=== PATIENT | male | born 1945 | race Caucasian/White ===

== ENCOUNTER 2020-05-18 16:46 | Inpatient (IN) | payer MEDICARE, OTHER ==
[2020-05-18 18:26] LABS: Hematocrit 24.6 % (42-50); Hemoglobin 8.1 gm/dl (12.5-18.0); Mean Cell Volume 118.3 fl (78-100); Mean Corpuscular Hemoglobin 38.9 pg (26-32); Mean Corpuscular Hgb Concent. 32.9 g/dl (32-36); Mean Platelet Volume 10.6 fl (7.5-11.0); Platelet Count 267 K/mm3 (150-450); Red Blood Count 2.08 M/mm3 (4.1-5.6); Red Cell Distribution Width 13.7 % (11.5-14.0); White Blood Count 4.3 K/mm3 (4.0-10.5)
[2020-05-18] MEDS ORDERED: Sodium Chloride 0.9% 1000 ML 1,000 ML IV SCH (18:30)
[2020-05-18 18:36] LABS: ALBUMIN 4.3 g/dL (3.5-5.0); ANION GAP 15.6 MEQ/L (5-15); BILIRUBIN,TOTAL 0.5 mg/dL (0.2-1.3); Calcium 9.1 mg/dL (8.4-10.2); Creatinine 1 1.95 mg/dL (0.66-1.25); EST GLOMERULAR FILTRATION RATE 35.8 ML/MIN; Total Protein 8.4 g/dL (6.3-8.2)
[2020-05-18] MEDS ORDERED: REMDESIVIR 200 MG in Sodium Chloride 0.9% 250 ML 250 ML IV SCH (19:00)
[2020-05-18] MEDS: TYLENOL EXTRA STRENGTH 500 MG PO PRN (20:35)
[2020-05-18] MEDS: Zofran 4 MG/2 ML VIAL IV PRN (21:00)
--- NOTE | 2020-05-18 21:30 | XRAY ---
Indication: Change in mental status. Nausea, vomiting, and chills. Positive Covid 19. Multiple contiguous axial images obtained through the chest without contrast as ordered. Comparison: None Lungs inflated with diffuse bilateral scattered patchy airspace disease and mild bibasilar dependent atelectasis. No effusion. Heart is not enlarged. Aorta is minimally calcified without aneurysmal dilatation. Small mediastinal and left hilar calcified nodes. Small hiatal hernia. Bony thorax intact with mild degenerative changes throughout the spine. CT abdomen/pelvis reported separately. Impression: 1. Diffuse bilateral patchy airspace disease, probable Covid 19 pneumonia based on clinical history. 2. Incidental old granulomatous disease. Comment: Preliminary interpretation was made by [facility]. No critical discrepancy.
--- NOTE | 2020-05-18 21:31 | XRAY ---
Indication: Change in mental status. Nausea, vomiting, and chills. Positive Covid 19. Multiple contiguous axial images obtained through the head without contrast. Comparison: None Age-appropriate global atrophy and mild periventricular degenerative micro-ischemia bilaterally. No acute intracranial hemorrhage, abnormal extra-axial fluid collection, or mass effect. Fourth ventricle is midline without hydrocephalus. Bony calvarium intact. Right maxillary and right frontal sinus demonstrate moderate mucosal thickening with fluid leveling. Lesser mucosal thickening seen of both ethmoid sinuses. Mastoid air cells are clear. Impression: 1. Nonacute senile brain. 2. Incidental paranasal sinus disease. Comment: Preliminary interpretation was made by [facility]. No critical discrepancy.
--- NOTE | 2020-05-18 21:46 | XRAY ---
Indication: Change in mental status. Nausea, vomiting, and chills. Positive Covid 19. Multiple contiguous axial images obtained through the abdomen and pelvis without contrast as ordered. Comparison: May 10, 2020. CT chest reported separately. Noncontrasted stomach and bowel loops remain nonobstructed with stable intact right hemicolectomy, descending/sigmoid diverticulosis, total cystectomy with right lower quadrant urinary diversion ileoconduit and right lower quadrant stoma. Also cholecystectomy, stable hepatic/splenic calcific granulomas, and hepatosplenomegaly. No free fluid/air. Remaining liver, pancreas, spleen, and adrenal glands are unremarkable for noncontrast exam. Stable mild scattered aortoiliac calcifications without AAA. Impression: 1. Stable postsurgical changes including right hemicolectomy and total cystectomy with right lower quadrant urinary diversion ileoconduit/stoma. 2. Again incidental colonic diverticulosis, hepatosplenomegaly, and old granulomatous disease. 3. No new/acute intra-abdominal/pelvic abnormalities on this noncontrast exam. Comment: Preliminary interpretation was made by [facility]. No critical discrepancy.
[2020-05-19] MEDS: Sodium Chloride 0.9% 1000 ML 1,000 ML IV SCH ×3 (02:03→15:09)
[2020-05-19 02:04] LABS: Bacteria MODERATE /HPF (NEGATIVE); Mucus SLIGHT /HPF (NEGATIVE); RBC 0-2 /HPF (0-2); WBC 26-50 /HPF (0-5)
[2020-05-19 02:06] LABS: Appearance CLOUDY (CLEAR); Bilirubin NEGATIVE (NEGATIVE); Glucose NEGATIVE (NEGATIVE); Ketones NEGATIVE (NEGATIVE); Nitrite NEGATIVE (NEGATIVE); Protein,Urine Dip 30 (Negative); RBC TRACE-INTACT Ery/ul (0-5); Specific Gravity 1.015 (1.005-1.025); Urobilinogen 0.2 mg/dL (0-1)
[2020-05-19] MEDS: TYLENOL EXTRA STRENGTH 500 MG PO PRN ×3 (04:51→23:25)
[2020-05-19 05:39] LABS: Hematocrit 24.3 % (42-50); Hemoglobin 7.9 gm/dl (12.5-18.0); Mean Cell Volume 119.7 fl (78-100); Mean Corpuscular Hemoglobin 38.9 pg (26-32); Mean Corpuscular Hgb Concent. 32.5 g/dl (32-36); Mean Platelet Volume 11.3 fl (7.5-11.0); Platelet Count 252 K/mm3 (150-450); Red Blood Count 2.03 M/mm3 (4.1-5.6); Red Cell Distribution Width 13.8 % (11.5-14.0); White Blood Count 3.7 K/mm3 (4.0-10.5)
[2020-05-19 05:52] LABS: INR 1.39 (0.8-3.0); PROTIME 15.8 SECONDS (8.83-12.87)
[2020-05-19 05:57] LABS: ANION GAP 17.2 MEQ/L (5-15); Calcium 8.6 mg/dL (8.4-10.2); Creatinine 1 1.77 mg/dL (0.66-1.25); EST GLOMERULAR FILTRATION RATE 40.1 ML/MIN; Potassium 3.7 mmol/L (3.5-5.1)
[2020-05-19] MEDS: Zofran 4 MG/2 ML VIAL IV PRN (08:11)
[2020-05-19] MEDS ORDERED: ROCEPHIN 1 Gm-D5w 50 ml Bag** 1 G/50 ML IVPB IV SCH (10:00)
[2020-05-19 12:22] LABS: AMYLASE 479 U/L (30-110)
[2020-05-19] MEDS ORDERED: MORPHINE SULFATE 2 MG INJ IV PRN (13:04)
[2020-05-19 13:18] LABS: LIPASE 2406 U/L (23-300)
[2020-05-19] MEDS: ZYLOPRIM 300 MG PO SCH (13:32)
[2020-05-19] MEDS: ASTELIN NASAL INTRANASAL SCH ×2 (13:33→21:21)
[2020-05-19] MEDS: hydroDIURIL 25 MG PO SCH (13:33)
[2020-05-19] MEDS: Lopressor 50 MG PO SCH (13:34)
[2020-05-19] MEDS: Zestril 5 MG PO SCH (13:34)
[2020-05-19] MEDS: NORVASC 5 MG PO SCH (13:34)
[2020-05-19] MEDS: Ativan 1 MG PO SCH (13:35)
[2020-05-19] MEDS: BABY ASPIRIN 81 MG CHEW PO SCH (13:35)
[2020-05-19] MEDS: ENOXAPARIN SODIUM SQ SCH (13:36)
[2020-05-19] MEDS: Protonix 40MG Tablet PO SCH (13:36)
[2020-05-19] MEDS: REMDESIVIR 100 MG in Sodium Chloride 0.9% 100 ML IVPB 100 ML IV SCH (18:48)
[2020-05-20] MEDS: Ativan 1 MG PO SCH ×3 (01:11→22:12)
[2020-05-20] MEDS: Sodium Chloride 0.9% 1000 ML 1,000 ML IV SCH ×2 (04:59→13:50)
[2020-05-20 06:54] LABS: AMYLASE 626 U/L (30-110)
[2020-05-20 06:55] LABS: INR 1.52 (0.8-3.0); PROTIME 17.2 SECONDS (8.83-12.87)
[2020-05-20 07:01] LABS: LIPASE 2990 U/L (23-300)
[2020-05-20 07:15] LABS: ALBUMIN 3.5 g/dL (3.5-5.0); ANION GAP 14.3 MEQ/L (5-15); BILIRUBIN,TOTAL 0.4 mg/dL (0.2-1.3); Calcium 8.5 mg/dL (8.4-10.2); Creatinine 1 1.56 mg/dL (0.66-1.25); EST GLOMERULAR FILTRATION RATE 46.3 ML/MIN; Potassium 3.9 mmol/L (3.5-5.1); Total Protein 6.9 g/dL (6.3-8.2)
[2020-05-20] MEDS: TYLENOL EXTRA STRENGTH 500 MG PO PRN (07:27)
[2020-05-20] MEDS: ASTELIN NASAL INTRANASAL SCH ×2 (09:26→22:12)
[2020-05-20] MEDS: BABY ASPIRIN 81 MG CHEW PO SCH (09:28)
[2020-05-20] MEDS: ZYLOPRIM 300 MG PO SCH (09:32)
[2020-05-20] MEDS: hydroDIURIL 25 MG PO SCH (09:35)
[2020-05-20] MEDS: Lopressor 50 MG PO SCH (09:35)
[2020-05-20] MEDS: ENOXAPARIN SODIUM SQ SCH (09:35)
[2020-05-20] MEDS: NORVASC 5 MG PO SCH (09:35)
[2020-05-20] MEDS: Zestril 5 MG PO SCH (09:35)
[2020-05-20] MEDS: Protonix 40MG Tablet PO SCH (09:35)
[2020-05-20] MEDS: TORAdol 30 mg Injection IV PRN ×2 (12:30→22:12)
[2020-05-20] MEDS: REMDESIVIR 100 MG in Sodium Chloride 0.9% 100 ML IVPB 100 ML IV SCH (18:05)
[2020-05-21 05:48] LABS: Absolute Neutrophil Ct (ANC) 1.87 (1.4-6.9); BASOPHIL % 0.4 % (0.0-0.4); Basophil (Absolute #) 0.01 (0-0.4); Eosinophil % 2.5 % (0.00-5.0); Eosinophil (Absolute #) 0.07 (0-0.5); Hematocrit 23.7 % (42-50); Hemoglobin 7.6 gm/dl (12.5-18.0); Lymphocyte (Absolute #) 0.62 (1.0-4.6); Lymphocytes % 22.3 % (24.0-44.0); Mean Cell Volume 119.1 fl (78-100); Mean Corpuscular Hemoglobin 38.2 pg (26-32); Mean Corpuscular Hgb Concent. 32.1 g/dl (32-36); Monocyte (Absolute #) 0.21 (0.0-1.3); Monocytes % 7.6 % (0.0-12.0); Neutrophil % 67.2 % (36.0-66.0); Platelet Count 285 K/mm3 (150-450); Red Blood Count 1.99 M/mm3 (4.1-5.6); Red Cell Distribution Width 13.9 % (11.5-14.0); White Blood Count 2.8 K/mm3 (4.0-10.5)
[2020-05-21 06:05] LABS: ALBUMIN 3.6 g/dL (3.5-5.0); ANION GAP 14.3 MEQ/L (5-15); BILIRUBIN,TOTAL 0.4 mg/dL (0.2-1.3); Calcium 8.4 mg/dL (8.4-10.2); Creatinine 1 1.4 mg/dL (0.66-1.25); EST GLOMERULAR FILTRATION RATE 52.5 ML/MIN; Potassium 3.6 mmol/L (3.5-5.1); Total Protein 7.4 g/dL (6.3-8.2)
[2020-05-21] MEDS: TORAdol 30 mg Injection IV PRN ×3 (08:29→22:27)
[2020-05-21] MEDS: ASTELIN NASAL INTRANASAL SCH ×2 (09:41→22:28)
[2020-05-21] MEDS: BABY ASPIRIN 81 MG CHEW PO SCH (09:42)
[2020-05-21] MEDS: Ativan 1 MG PO SCH ×2 (09:42→22:28)
[2020-05-21] MEDS: ZYLOPRIM 300 MG PO SCH (09:45)
[2020-05-21] MEDS: hydroDIURIL 25 MG PO SCH (09:53)
[2020-05-21] MEDS: Lopressor 50 MG PO SCH (09:53)
[2020-05-21] MEDS: Zestril 5 MG PO SCH (09:53)
[2020-05-21] MEDS: NORVASC 5 MG PO SCH (09:53)
[2020-05-21] MEDS: Protonix 40MG Tablet PO SCH (09:53)
[2020-05-21] MEDS: ENOXAPARIN SODIUM SQ SCH (09:54)
[2020-05-21] MEDS: Sodium Chloride 0.9% 1000 ML 1,000 ML IV SCH ×2 (12:03→22:33)
--- NOTE | 2020-05-21 13:25 | HP ---
CHIEF COMPLAINT: Headache, nausea, vomiting, weakness, history of a positive COVID test. HISTORY OF PRESENT ILLNESS: The patient came to the office and was seen by Dr. Feldman and he has continued to vomit the last day and felt terrible. He had a positive COVID test I think the day before. Because of his labs Dr. Feldman had ordered a CT of the chest, CT abdomen and pelvis which he had to do without contrast because of elevated creatinine. His main complaint is the abdominal griping pain he said and the nausea, feeling weak. He denies having any high fever or chills. He denies any cough or shortness of breath. The has noticed some mental status changes. She said he is having chills. MEDICATIONS: Allopurinol 300 q.d., amlodipine 5 q.d., aspirin 81 q.d., Astelin nose spray 2 sprays b.i.d. each nostril, hydrochlorothiazide 25 q.d., Lisinopril 5 q.d. and metoprolol 50 q.d. ALLERGIES: PROMETHAZINE. 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 B12 level was done here and it was more than adequate. Hypertension supposedly well controlled. History of gout in the past. Kidney stones. 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 He said that has done very well for him. He has an Meenakshi pouch or a jejunostomy pouch. SOCIAL HISTORY: The patient lives with his . He is retired. Nonsmoker. LAB DATA AND TESTS: Hemoglobin 7.9. MCV markedly elevated 119. PLT count 250,000. Vitamin B12 was well within normal at 578. UA is slightly abnormal. Blood sugar 124, creatinine 1.95. Total protein mildly elevated 8.2. His lipase is 1,261, amylase 391 suggestive of chronic pancreatitis. CT scan with no contrast did not particularly show anything. His D-dimer is slightly elevated at 707. PHYSICAL EXAMINATION: HEENT: Kind of a dull headache in frontal. NECK: No stiffness. CHEST: No cough. No smoking. CVS: No exertional chest pain or palpitation. No coronary artery disease. ABDOMEN: Nausea, vomiting, lower abdominal pain. EXTREMITIES: No specific complaints except for weakness. IMPRESSION: The patient has: 1) COVID with perhaps GI symptoms, weakness. 2) Possible pancreatitis. Elevated amylase and lipase. 3) Myeloproliferative disorder and no specific treatment. 4) Macrocytic anemia secondary to above. PLAN: The patient will be treated for COVID with medicines including Decadron and Remdesivir, nausea medicine. He will not be anticoagulated due to his D-dimer being slightly high at 700 and myeloproliferative disorder, will consider that later. I do note chest x-ray does show ground-glass areas in the peripheral of the lung typical for viral pneumonia, connective tissue disease.
[2020-05-21] MEDS: REMDESIVIR 100 MG in Sodium Chloride 0.9% 100 ML IVPB 100 ML IV SCH (18:06)
[2020-05-21] MEDS: TYLENOL EXTRA STRENGTH 500 MG PO PRN (20:11)
[2020-05-22 06:09] LABS: Hematocrit 23.3 % (42-50); Hemoglobin 7.5 gm/dl (12.5-18.0); Mean Cell Volume 118.9 fl (78-100); Mean Corpuscular Hemoglobin 38.3 pg (26-32); Mean Corpuscular Hgb Concent. 32.2 g/dl (32-36); Mean Platelet Volume 10.9 fl (7.5-11.0); Platelet Count 326 K/mm3 (150-450); Red Blood Count 1.96 M/mm3 (4.1-5.6); Red Cell Distribution Width 13.8 % (11.5-14.0); White Blood Count 4.9 K/mm3 (4.0-10.5)
[2020-05-22 06:15] LABS: ANION GAP 12.3 MEQ/L (5-15); Calcium 8.6 mg/dL (8.4-10.2); Creatinine 1 1.41 mg/dL (0.66-1.25); EST GLOMERULAR FILTRATION RATE 52.1 ML/MIN; Potassium 4.1 mmol/L (3.5-5.1)
[2020-05-22] MEDS: TYLENOL EXTRA STRENGTH 500 MG PO PRN ×2 (06:32→21:17)
[2020-05-22] MEDS: BABY ASPIRIN 81 MG CHEW PO SCH (09:55)
[2020-05-22] MEDS: ASTELIN NASAL INTRANASAL SCH ×2 (09:55→21:19)
[2020-05-22] MEDS: Ativan 1 MG PO SCH ×2 (09:55→21:17)
[2020-05-22] MEDS: hydroDIURIL 25 MG PO SCH (09:56)
[2020-05-22] MEDS: ENOXAPARIN SODIUM SQ SCH (09:56)
[2020-05-22] MEDS: Lopressor 50 MG PO SCH (09:56)
[2020-05-22] MEDS: NORVASC 5 MG PO SCH (09:56)
[2020-05-22] MEDS: Protonix 40MG Tablet PO SCH (09:58)
[2020-05-22] MEDS: ZYLOPRIM 300 MG PO SCH (09:58)
[2020-05-22] MEDS: Zestril 5 MG PO SCH (09:58)
[2020-05-22] MEDS: Sodium Chloride 0.9% 1000 ML 1,000 ML IV SCH ×2 (10:07→21:18)
[2020-05-22] MEDS: Zofran 4 MG/2 ML VIAL IV PRN (15:04)
[2020-05-22] MEDS: REMDESIVIR 100 MG in Sodium Chloride 0.9% 100 ML IVPB 100 ML IV SCH (18:01)
[2020-05-22] MEDS: TORAdol 30 mg Injection IV PRN (19:21)
[2020-05-22] MEDS ORDERED: NEURONTIN 300 MG ONE (20:37)
[2020-05-22] MEDS: NEURONTIN 300 MG PO SCH (21:18)
[2020-05-23] MEDS: NEURONTIN 300 MG PO SCH ×4 (05:40→22:02)
[2020-05-23 06:23] LABS: AMYLASE 441 U/L (30-110); LIPASE 1700 U/L (23-300)
[2020-05-23] MEDS: ASTELIN NASAL INTRANASAL SCH ×2 (09:13→22:02)
[2020-05-23] MEDS: Lopressor 50 MG PO SCH (09:14)
[2020-05-23] MEDS: ENOXAPARIN SODIUM SQ SCH (09:14)
[2020-05-23] MEDS: BABY ASPIRIN 81 MG CHEW PO SCH (09:14)
[2020-05-23] MEDS: hydroDIURIL 25 MG PO SCH (09:14)
[2020-05-23] MEDS: ZYLOPRIM 300 MG PO SCH (09:15)
[2020-05-23] MEDS: Protonix 40MG Tablet PO SCH (09:15)
[2020-05-23] MEDS: NORVASC 5 MG PO SCH (09:15)
[2020-05-23] MEDS: Ativan 1 MG PO SCH ×2 (09:16→22:03)
[2020-05-23] MEDS: TORAdol 30 mg Injection IV PRN ×2 (09:17→17:08)
[2020-05-23] MEDS: Zestril 5 MG PO SCH (09:33)
[2020-05-23] MEDS: Sodium Chloride 0.9% 1000 ML 1,000 ML IV SCH ×2 (09:33→22:01)
[2020-05-23] MEDS: TYLENOL EXTRA STRENGTH 500 MG PO PRN ×2 (18:02→23:32)
[2020-05-24] MEDS: Zofran 4 MG/2 ML VIAL IV PRN ×2 (00:11→08:26)
[2020-05-24 03:56] LABS: ALBUMIN 3.1 g/dL (3.5-5.0); ANION GAP 15.1 MEQ/L (5-15); BILIRUBIN,TOTAL 0.7 mg/dL (0.2-1.3); Calcium 8.4 mg/dL (8.4-10.2); Creatinine 1 1.35 mg/dL (0.66-1.25); EST GLOMERULAR FILTRATION RATE 54.8 ML/MIN; Potassium 3.7 mmol/L (3.5-5.1); Total Protein 6.4 g/dL (6.3-8.2)
[2020-05-24 04:48] LABS: Absolute Neutrophil Ct (ANC) 8.27 (1.4-6.9); BASOPHIL % 0.2 % (0.0-0.4); Basophil (Absolute #) 0.02 (0-0.4); Eosinophil % 0.7 % (0.00-5.0); Eosinophil (Absolute #) 0.06 (0-0.5); Hematocrit 21.6 % (42-50); Lymphocyte (Absolute #) 0.36 (1.0-4.6); Lymphocytes % 3.9 % (24.0-44.0); Mean Cell Volume 120.7 fl (78-100); Mean Corpuscular Hemoglobin 39.1 pg (26-32); Mean Corpuscular Hgb Concent. 32.4 g/dl (32-36); Mean Platelet Volume 11.4 fl (7.5-11.0); Monocyte (Absolute #) 0.51 (0.0-1.3); Monocytes % 5.5 % (0.0-12.0); Neutrophil % 89.7 % (36.0-66.0); Platelet Count 381 K/mm3 (150-450); Red Cell Distribution Width 14.1 % (11.5-14.0); White Blood Count 9.2 K/mm3 (4.0-10.5)
[2020-05-24 05:07] LABS: Red Blood Count 1.79 M/mm3 (4.1-5.6)
[2020-05-24] MEDS: Sodium Chloride 0.9% 1000 ML 1,000 ML IV SCH ×2 (06:51→16:44)
[2020-05-24 07:09] LABS: Slide Review 1 YES
[2020-05-24] MEDS: TYLENOL EXTRA STRENGTH 500 MG PO PRN ×2 (08:26→21:43)
[2020-05-24] MEDS: ASTELIN NASAL INTRANASAL SCH ×2 (09:27→21:21)
[2020-05-24] MEDS: BABY ASPIRIN 81 MG CHEW PO SCH (09:29)
[2020-05-24] MEDS: hydroDIURIL 25 MG PO SCH (09:29)
[2020-05-24] MEDS: NEURONTIN 300 MG PO SCH ×3 (09:30→21:22)
[2020-05-24] MEDS: Zestril 5 MG PO SCH (09:30)
[2020-05-24] MEDS: Protonix 40MG Tablet PO SCH (09:30)
[2020-05-24] MEDS: NORVASC 5 MG PO SCH (09:30)
[2020-05-24] MEDS: ZYLOPRIM 300 MG PO SCH (09:30)
[2020-05-24] MEDS: TORAdol 30 mg Injection IV PRN ×2 (09:30→21:22)
[2020-05-24] MEDS: Lopressor 50 MG PO SCH (09:31)
[2020-05-24] MEDS: Ativan 1 MG PO SCH ×2 (09:33→21:22)
[2020-05-25 05:28] LABS: Hematocrit 20.6 % (42-50); Mean Cell Volume 119.8 fl (78-100); Mean Corpuscular Hemoglobin 38.4 pg (26-32); Mean Platelet Volume 11.1 fl (7.5-11.0); Platelet Count 358 K/mm3 (150-450); Red Cell Distribution Width 13.8 % (11.5-14.0); White Blood Count 8.4 K/mm3 (4.0-10.5)
[2020-05-25 05:34] LABS: Red Blood Count 1.72 M/mm3 (4.1-5.6)
[2020-05-25 05:35] LABS: Hemoglobin 6.6 gm/dl (12.5-18.0)
[2020-05-25 05:39] LABS: AMYLASE 145 U/L (30-110); LIPASE 372 U/L (23-300)
[2020-05-25] MEDS: Sodium Chloride 0.9% 1000 ML 1,000 ML IV SCH ×3 (06:08→23:45)
[2020-05-25 07:51] LABS: ABO TYPING O; Antibody Screen NEGATIVE (NEGATIVE); RH TYPING POSITIVE
[2020-05-25 07:54] LABS: CROSS MATCH (PRBC) COMPATIBLE (COMPATIBLE)
[2020-05-25] MEDS: ASTELIN NASAL INTRANASAL SCH ×3 (10:27→21:34)
[2020-05-25] MEDS: Ativan 1 MG PO SCH ×2 (11:03→21:23)
[2020-05-25] MEDS: hydroDIURIL 25 MG PO SCH (11:03)
[2020-05-25] MEDS: ECOTRIN 81 MG PO SCH (11:04)
[2020-05-25] MEDS: Lopressor 50 MG PO SCH (11:04)
[2020-05-25] MEDS: ZYLOPRIM 300 MG PO SCH (11:04)
[2020-05-25] MEDS: Zestril 5 MG PO SCH (11:04)
[2020-05-25] MEDS: Protonix 40MG Tablet PO SCH (11:04)
[2020-05-25] MEDS: NORVASC 5 MG PO SCH (11:04)
[2020-05-25] MEDS: NEURONTIN 300 MG PO SCH ×3 (11:04→21:23)
[2020-05-25] MEDS: Lomotil PO SCH ×3 (11:05→21:23)
--- NOTE | 2020-05-25 11:27 | PROG NOTE ---
DATE: 05/25/2020 ADMISSION DIAGNOSES: 1) COVID pneumonia. 2) Pancreatitis moderate to severe. 3) No bladder. 4) Diarrhea. 5) Leg pain. HISTORY: The patient came in with all the above problems. He had his bladder removed due to severe interstitial cystitis years ago. He said it worked very well and his life is bearable. He started developing leg cramps, spasms, nerve pain that has responded nicely to the Neurontin 300 t.i.d. He was hypoxic and that has slowly improved with the oxygen, Decadron and Remdesivir. His problem was mostly the pancreatitis which he has had several times before. He had ERCP that showed no blockage and his gallbladder is out. Today finally his pancreatic enzymes approached normal. He was able to eat some real food last night so optimistic about that. He has minimal pain right now. Chest is clear. Heart sounds regular. Abdomen minimal pain over the epigastric area. He has ostomy pouch on the right which is actually the bladder is normal. IMPRESSION: 1) COVID pneumonia. 2) Pancreatitis. 3) Myeloproliferative disorder with chronic macrocytic anemia which is stable however it stopped under 6. I think we are going to give him 2 units of blood. The patient is improving on all counts may get well enough to return home in 24 to 72 hours hopefully. Diarrhea is still really bad. He normally has some diarrhea this is diffuse and will add Lomotil for that.
[2020-05-25 16:29] LABS: Hematocrit 26.4 % (42-50); Mean Cell Volume 108.2 fl (78-100); Mean Corpuscular Hemoglobin 35.2 pg (26-32); Mean Corpuscular Hgb Concent. 32.6 g/dl (32-36); Mean Platelet Volume 11.2 fl (7.5-11.0); Platelet Count 356 K/mm3 (150-450); Red Blood Count 2.44 M/mm3 (4.1-5.6); Red Cell Distribution Width 20.8 % (11.5-14.0); White Blood Count 6.8 K/mm3 (4.0-10.5)
[2020-05-25 16:34] LABS: Hemoglobin 8.6 gm/dl (12.5-18.0)
[2020-05-25] MEDS: TYLENOL EXTRA STRENGTH 500 MG PO PRN (23:46)
[2020-05-26 07:12] LABS: Hematocrit 25.8 % (42-50); Hemoglobin 8.2 gm/dl (12.5-18.0); Mean Cell Volume 109.3 fl (78-100); Mean Corpuscular Hemoglobin 34.7 pg (26-32); Mean Corpuscular Hgb Concent. 31.8 g/dl (32-36); Mean Platelet Volume 11.1 fl (7.5-11.0); Platelet Count 331 K/mm3 (150-450); Red Blood Count 2.36 M/mm3 (4.1-5.6); Red Cell Distribution Width 21.4 % (11.5-14.0)
[2020-05-26 07:35] LABS: AMYLASE 171 U/L (30-110); ANION GAP 10.9 MEQ/L (5-15); LIPASE 488 U/L (23-300)
[2020-05-26 07:52] LABS: Potassium 2.8 mmol/L (3.5-5.1)
[2020-05-26] MEDS: POTASSIUM CHLORIDE 20 mEq IN WATER 100ML 20 MEQ/100 ML BAG IV SCH ×2 (09:08→10:40)
[2020-05-26 09:40] LABS: Slide Review YES
[2020-05-26] MEDS: ASTELIN NASAL INTRANASAL SCH ×2 (09:46→21:05)
[2020-05-26] MEDS: Protonix 40MG Tablet PO SCH (09:48)
[2020-05-26] MEDS: NORVASC 5 MG PO SCH (09:48)
[2020-05-26] MEDS: ECOTRIN 81 MG PO SCH (09:48)
[2020-05-26] MEDS: NEURONTIN 300 MG PO SCH ×3 (09:48→21:02)
[2020-05-26] MEDS: Lopressor 50 MG PO SCH (09:49)
[2020-05-26] MEDS: Zestril 5 MG PO SCH (09:49)
[2020-05-26] MEDS: ZYLOPRIM 300 MG PO SCH (09:49)
[2020-05-26] MEDS: hydroDIURIL 25 MG PO SCH (09:49)
[2020-05-26] MEDS: Lomotil PO SCH (09:50)
[2020-05-26] MEDS: Ativan 1 MG PO SCH ×2 (09:53→21:02)
--- NOTE | 2020-05-26 10:55 | PCM.NOTE ---
Date and Time: 05/26/20 1051 Subjective Assessment: Patient is feeling ok. still very weak and short of breath - Review of Systems Constitutional: Lethargy, Weakness, No Fever, No Chills Eyes: No Symptoms Ears, Nose, & Throat: No Symptoms Respiratory: Orthopnea, Short Of Breath, No Cough Cardiac: No Chest Pain, No Edema, No Syncope Abdominal/Gastrointestinal: Abdominal Pain, Nausea, No Vomiting, No Diarrhea Genitourinary Symptoms: No Dysuria Musculoskeletal: No Back Pain, No Neck Pain Skin: No Rash Neurological: No Dizziness, No Focal Weakness, No Sensory Changes Psychological: No Symptoms Endocrine: No Symptoms Hematologic/Lymphatic: No Symptoms Immunological/Allergic: No Symptoms Objective Exam General Appearance: moderate distress, alert Neurologic Exam: alert, oriented x 3, cooperative, No motor deficits Skin Exam: normal color, warm, dry Eye Exam: PERRL, EOMI, eyes nml inspection Ears, Nose, Throat Exam: normal ENT inspection, pharynx normal, moist mucous membranes Neck Exam: normal inspection, non-tender, supple, full range of motion Respiratory Exam: crackles/rales, rhonchi, wheezing, No respiratory distress Cardiovascular Exam: regular rate/rhythm, normal heart sounds Gastrointestinal/Abdomen Exam: soft, No tenderness, No mass Extremity Exam: normal inspection, normal range of motion Back Exam: normal inspection, normal range of motion, No CVA tenderness, No vertebral tenderness Male Genitalia Exam: deferred Rectal Exam: deferred OBJECTIVE DATA Vital Signs: Vital Signs - 24 hr Temp Pulse Resp BP Pulse Ox 05/26/20 10:00 24 05/26/20 09:44 88 16 94 L 05/26/20 08:46 97 05/26/20 08:00 18 05/26/20 07:43 98.2 F 93 H 18 123/56 97 05/26/20 05:39 81 19 95 05/26/20 04:05 98.2 F 93 H 24 129/61 96 05/26/20 02:08 93 H 22 95 05/25/20 23:50 100.6 F 91 H 28 H 138/63 92 L 05/25/20 21:48 90 20 94 L 05/25/20 19:41 97.9 F 93 H 24 133/62 93 L 05/25/20 19:15 93 L 05/25/20 18:00 28 H 05/25/20 17:50 92 H 28 H 91 L 05/25/20 15:59 24 05/25/20 15:58 97.4 F 88 24 148/70 98 05/25/20 14:00 24 05/25/20 13:53 84 14 94 L 05/25/20 12:00 98.2 F 83 24 137/66 97 05/25/20 11:30 99 Oxygen-Last 24 hours Oxygen Flowrate (L/min)-RT 1 Pain Assessment - Last Documented Pain Intensity 0 Pain Scale Used [facility] Intake and Output: Intake & Output 05/23/20 05/24/20 05/25/20 05/26/20 11:59 11:59 11:59 11:59 Intake Total 2208 3023 2787 3482 Output Total 2400 3450 2100 3100 Balance -192 -427 687 382 Weight 84.5 kg 85.5 kg 87.6 kg 87 kg Lab Results: Lab Results-Last 24 Hours 05/25/20 05/26/20 05/26/20 Range/Units 16:13 06:00 06:30 WBC 6.8 5.0 (4.0-10.5) K/mm3 RBC 2.44 L 2.36 L (4.1-5.6) M/mm3 Hgb 8.6 L D 8.2 L (12.5-18.0) gm/dl Hct 26.4 L 25.8 L (42-50) % MCV 108.2 H D 109.3 H (78-100) fl MCH 35.2 H 34.7 H (26-32) pg MCHC 32.6 31.8 L (32-36) g/dl RDW 20.8 H 21.4 H (11.5-14.0) % Plt Count 356 331 (150-450) K/mm3 MPV 11.2 H 11.1 H (7.5-11.0) fl Sodium (137-145) mmol/L Potassium (3.5-5.1) mmol/L Chloride (98-107) mmol/L Carbon Dioxide (22-30) mmol/L Anion Gap (5-15) MEQ/L Amylase 171 H (30-110) U/L Lipase 488 H (23-300) U/L Slides for Path Review YES 05/26/20 Range/Units 06:30 WBC (4.0-10.5) K/mm3 RBC (4.1-5.6) M/mm3 Hgb (12.5-18.0) gm/dl Hct (42-50) % MCV (78-100) fl MCH (26-32) pg MCHC (32-36) g/dl RDW (11.5-14.0) % Plt Count (150-450) K/mm3 MPV (7.5-11.0) fl Sodium 138 (137-145) mmol/L Potassium 2.8 L* (3.5-5.1) mmol/L Chloride 104 (98-107) mmol/L Carbon Dioxide 26 (22-30) mmol/L Anion Gap 10.9 (5-15) MEQ/L Amylase (30-110) U/L Lipase (23-300) U/L Slides for Path Review Multi-Disciplinary Progress Notes: Multi-Disciplinary Progress Notes 05/25/20 13:59 Case Management Note by Windy Ho Addendum entered by Windy Ho 05/25/20 14:37: S/W DAUGHTER- UNABLE TO GET A HOLD OF PATIENT PER ROOM PHONE Original Note: S/W DAUGHTER WHO IS CURRENTLY CARING FOR PATIENT'S AT HOME. SHE WOULD LIKE PATIENT TO RETURN HOME AT TIME OF DC AND SHE WILL STAY WITH HIM TO ASSIST HIM NEEDED. SHE WOULD ALSO LIKE [facility]. SENT REFERRAL TO [email or web address]. SAAD AT [facility] NOTIFIED. THEY ARE ACCEPTING REFERRAL NURSING TO CALL [facility] AT TIME OF DC AT [phone], THEY WILL NEED FAXED THE DC INSTRUCTIONS, DC MED LIST AND DC SUMMARY (IF AVAILABLE) TO [phone] Initialized on 05/25/20 13:59 - END OF NOTE Assessment/Plan (1) Pneumonia due to 2019 novel coronavirus Current Visit: Yes Status: Acute Onset Date: ~05/23/20 Assessment & Plan: Chief Complaint Diagnosis MSC, Nausea/Vomiting,Chills Allergies Allergy/AdvReac Type Severity Reaction Status Date / Time promethazine [From Phenergan] Allergy Intermediate Difficulty Verified 05/19/20 00:43 Breathing Vital Signs (Last 24 hours) Temp Pulse Resp BP Pulse Ox 05/26/20 10:00 24 05/26/20 09:44 88 16 94 L 05/26/20 08:46 97 05/26/20 08:00 18 05/26/20 07:43 98.2 F 93 H 18 123/56 97 05/26/20 05:39 81 19 95 05/26/20 04:05 98.2 F 93 H 24 129/61 96 05/26/20 02:08 93 H 22 95 05/25/20 23:50 100.6 F 91 H 28 H 138/63 92 L 05/25/20 21:48 90 20 94 L 05/25/20 19:41 97.9 F 93 H 24 133/62 93 L 05/25/20 19:15 93 L 05/25/20 18:00 28 H 05/25/20 17:50 92 H 28 H 91 L 05/25/20 15:59 24 05/25/20 15:58 97.4 F 88 24 148/70 98 05/25/20 14:00 24 05/25/20 13:53 84 14 94 L 05/25/20 12:00 98.2 F 83 24 137/66 97 05/25/20 11:30 99 Home Medications Medication Instructions Recorded Confirmed Last Taken Type Allopurinol 300 mg [Zyloprim 300 mg PO QAM 05/19/20 05/19/20 05/18/20 08:00 History 300 mg] Amlodipine Besylate 5 mg 5 mg PO QAM 05/19/20 05/19/20 05/18/20 08:00 History [Norvasc 5 mg] Aspirin 81 gm Chew [Baby 81 mg PO QAM 05/19/20 05/19/20 05/18/20 08:00 History Aspirin 81 mg Chew] Azelastine Nasal [Astelin 2 sprays IN BID 05/19/20 05/19/20 05/18/20 08:00 History Nasal] Lisinopril 5 mg [Zestril 5 5 mg PO QAM 05/19/20 05/19/20 05/18/20 08:00 History MG] Metoprolol Tartrate 50 mg 50 mg PO QAM 05/19/20 05/19/20 05/18/20 08:00 History [Lopressor 50 MG] hydroCHLOROthiazide 25 mg PO QAM 05/19/20 05/19/20 05/18/20 08:00 History [Hydrochlorothiazide] Current Medications Generic Name Dose Route Start Last Admin Trade Name Freq PRN Reason Stop Dose Admin Acetaminophen 1,000 mg 05/19/20 14:18 05/25/20 23:46 Tylenol Extra Strength 500 Mg PO 06/18/20 14:17 1,000 mg Q6H PRN PRN Administration HEADACHE Allopurinol 300 mg 05/19/20 13:15 05/26/20 09:49 Zyloprim 300 Mg PO 06/18/20 13:14 300 mg QAM RONNI Administration Amlodipine Besylate 5 mg 05/19/20 14:00 05/26/20 09:48 Norvasc 5 Mg PO 06/18/20 13:59 5 mg QAM RONNI Administration Aspirin 81 mg 05/25/20 11:00 05/26/20 09:48 Ecotrin 81 Mg PO 06/24/20 10:59 81 mg QAM RONNI Administration Azelastine HCl 0 ml 05/19/20 14:00 05/26/20 09:46 Astelin Nasal INTRANASAL 06/18/20 13:59 30 ml BID RONNI Administration Diphenoxylate HCl/Atropine 1 tablet 05/25/20 11:00 05/26/20 09:50 Lomotil PO 06/24/20 10:59 Not Given QID RONNI Gabapentin 300 mg 05/23/20 10:00 05/26/20 09:48 Neurontin 300 Mg PO 06/22/20 09:59 300 mg TID RONNI Administration Hydrochlorothiazide 25 mg 05/19/20 13:15 05/26/20 09:49 Hydrodiuril 25 Mg PO 06/18/20 13:14 25 mg QAM RONNI Administration Sodium Chloride 1,000 mls @ 90 mls/hr 05/18/20 23:30 05/25/20 23:45 Sodium Chloride 0.9% 1000 Ml IV 06/17/20 23:29 90 mls/hr .Q11H7M RONNI Administration Potassium Chloride 20 meq in 100 mls @ 50 mls/hr 05/26/20 08:00 05/26/20 10:40 Potassium Chloride 20 Meq In Water 100ml IV 05/26/20 11:59 50 mls/hr Q2H RONNI Administration Lisinopril 5 mg 05/19/20 13:15 05/26/20 09:49 Zestril 5 Mg PO 06/18/20 13:14 5 mg QAM RONNI Administration Lorazepam 1 mg 05/19/20 13:15 05/26/20 09:53 Ativan 1 Mg PO 06/18/20 13:14 1 mg BID RONNI Administration Metoprolol Tartrate 50 mg 05/19/20 13:15 05/26/20 09:49 Lopressor 50 Mg PO 06/18/20 13:14 50 mg QAM RONNI Administration Ondansetron HCl 4 mg 05/18/20 18:31 05/24/20 08:26 Zofran 4 Mg/2 Ml Vial IV 06/17/20 18:30 4 mg Q4H PRN PRN Administration NV Pantoprazole Sodium 40 mg 05/19/20 10:00 05/26/20 09:48 Protonix 40mg Tablet PO 06/18/20 09:59 40 mg DAILY RONNI Administration Discontinued Medications Generic Name Dose Route Start Last Admin Trade Name Freq PRN Reason Stop Dose Admin Acetaminophen 500 mg 05/18/20 18:32 05/19/20 13:34 Tylenol Extra Strength 500 Mg PO 06/17/20 18:31 500 mg Q6H PRN PRN Administration PAIN AND/OR FEVER Aspirin 81 mg 05/19/20 13:15 05/24/20 09:29 Baby Aspirin 81 Mg Chew PO 06/18/20 13:14 81 mg QAM RONNI Administration Enoxaparin Sodium 40 mg 05/19/20 13:15 05/23/20 09:14 Enoxaparin Sodium SQ 06/18/20 13:14 40 mg DAILY RONNI Administration Gabapentin 300 mg 05/22/20 20:15 05/23/20 05:40 Neurontin 300 Mg PO 06/21/20 20:14 Not Given Q8H RONNI Gabapentin Confirm 05/22/20 20:37 Neurontin 300 Mg Administered 05/22/20 20:38 Dose 300 mg .ROUTE .STK-MED ONE Remdesivir 200 mg/ Sodium 250 mls @ 125 mls/hr 05/18/20 19:00 05/18/20 19:28 Chloride IV 05/18/20 20:59 125 mls/hr 1900 RONNI Administration Remdesivir 100 mg/ Sodium 100 mls @ 100 mls/hr 05/19/20 19:00 05/22/20 18:01 Chloride IV 05/22/20 19:59 100 mls/hr 1900 RONNI Administration Sodium Chloride 1,000 mls @ 125 mls/hr 05/18/20 18:30 05/18/20 19:28 Sodium Chloride 0.9% 1000 Ml IV 05/19/20 02:29 125 mls/hr .Q8H RONNI Administration Ceftriaxone Sodium/Dextrose 1 g in 50 mls @ 100 mls/hr 05/19/20 10:00 Rocephin 1 Gm-D5w 50 Ml Bag IV 06/18/20 09:59 Q24H10 RONNI Ketorolac Tromethamine 30 mg 05/20/20 10:41 05/24/20 21:22 Toradol 30 Mg Injection IV 05/25/20 10:40 30 mg Q6H PRN PRN Administration PAIN Morphine Sulfate 2 mg 05/19/20 13:04 Morphine Sulfate 2 Mg Inj IV 05/24/20 13:03 Q3H PRN PRN LEG PAIN Intake & Output (Last 24 hours) 05/23/20 05/24/20 05/25/20 05/26/20 11:59 11:59 11:59 11:59 Intake Total 2208 3023 2787 3482 Output Total 2400 3450 2100 3100 Balance -192 -427 687 382 Weight 84.5 kg 85.5 kg 87.6 kg 87 kg Microbiology Results (Last 24 hours) 05/24/20 01:11 Blood Blood Culture Gram Stain - Pending 05/24/20 01:11 Blood Blood Culture - Preliminary NO GROWTH TO DATE Laboratory Results (Last 24 hours) 05/26/20 05/26/20 05/26/20 06:30 06:30 06:00 WBC 5.0 RBC 2.36 L Hgb 8.2 L Hct 25.8 L MCV 109.3 H MCH 34.7 H MCHC 31.8 L RDW 21.4 H Plt Count 331 MPV 11.1 H Sodium 138 Potassium 2.8 L* Chloride 104 Carbon Dioxide 26 Anion Gap 10.9 Amylase 171 H Lipase 488 H Slides for Path Review YES 05/25/20 16:13 WBC 6.8 RBC 2.44 L Hgb 8.6 L D Hct 26.4 L MCV 108.2 H D MCH 35.2 H MCHC 32.6 RDW 20.8 H Plt Count 356 MPV 11.2 H Sodium Potassium Chloride Carbon Dioxide Anion Gap Amylase Lipase Slides for Path Review Orders (Last 24 hours) Category Date Time Status Order K Level 2 hours post-inf 2 HRS POST K-INFUSED Care 05/26/20 07:59 Active AMYLASE AM.LAB Lab 05/26/20 06:30 Completed CBC AM.LAB Lab 05/26/20 06:00 Completed CBC Routine Lab 05/25/20 16:13 Completed ELECTROLYTE PANEL AM.LAB Lab 05/26/20 06:30 Completed LIPASE AM.LAB Lab 05/26/20 06:30 Completed Aspirin EC 81 mg [Ecotrin 81 mg] Med 05/25/20 11:00 Active 81 mg PO QAM Diphenoxylate HCl/Atropine [Lomotil] Med 05/25/20 11:00 Active 1 tablet PO QID Potassium Chloride 20Meq/100Ml [POTASSIUM CHLORIDE 20 Med 05/26/20 08:00 Active mEq IN WATER 100ML] 20 meq in 100 ml IV Q2H Patient Care Notes (Last 24 hours) 05/26/20 04:00 (created 05/26/20 05:14) Nursing Note by Rolando Domingo Pt's O2 sat briefly dropped to 69% while pt sleeping. Pt had NC on his forehead, replaced NC, O2 sat quickly back to 94%. O2 sat continues to fl uctuate between 84-94% while sleeping on 3L NC. Initialized on 05/26/20 05:14 - END OF NOTE 05/26/20 02:14 Nursing Note by Rolando Domingo Pt O2 sat briefly drops to low to mid 80s, then back up to low to mid 90s while sleeping. Increased O2 to 2L. Pt still drops to mid 80s. Increased again to 3 L. Pt O2 sat continues to fluctuate from 84% to 96% while sleeping. Initialized on 05/26/20 02:14 - END OF NOTE 05/26/20 00:08 Nursing Note by Rolando Domingo Assisted pt to straight cath, pt very weak at this time and unable to sit on ed ge of bed without assistance. Assisted pt back into bed & repositioned for comfort. Initialized on 05/26/20 00:08 - END OF NOTE 05/25/20 16:20 Nursing Note by Vanessa Lockhart Patient tolerated 2nd unit of PRBCs well, no issues. CBC drawn by lab Initialized on 05/25/20 16:20 - END OF NOTE 05/25/20 13:59 Case Management Note by Windy Ho Addendum entered by Windy Ho 05/25/20 14:37: S/W DAUGHTER- UNABLE TO GET A HOLD OF PATIENT PER ROOM PHONE Original Note: S/W DAUGHTER WHO IS CURRENTLY CARING FOR PATIENT'S AT HOME. SHE WOULD LIKE PATIENT TO RETURN HOME AT TIME OF DC AND SHE WILL STAY WITH HIM TO ASSIST HIM NEEDED. SHE WOULD ALSO LIKE [facility]. SENT REFERRAL TO [facility]. SAAD AT [facility] NOTIFIED. THEY ARE ACCEPTING REFERRAL NURSING TO CALL [facility] AT TIME OF DC AT [phone], THEY WILL NEED FAXED THE DC INSTRUCTIONS, DC MED LIST AND DC SUMMARY (IF AVAILABLE) TO [phone] Initialized on 05/25/20 13:59 - END OF NOTE 05/25/20 13:51 Nursing Note by Vanessa Lockhart Patient tolerated 1st unit PRBCs well, no issues. 2nd unit currently infusing, no issues. Initialized on 05/25/20 13:51 - END OF NOTE 05/25/20 11:13 Nursing Note by Vanessa Lockhart Hgb 6.6. Dr. Stark ordered 2 units PRBCs for patient. Discussed with patient. Patient stated he wanted to check with his "blood doctor" Dr. De La Torre before received. This nurse spoke with Dr. De La Torre's nurse, Marisol. Per nurse patient would receive transfusion at those levels if he was being seen by them, and ok for transfusion. Discussed this with patient, agreeable to receive and consent obtained. VS obtained and patient tolerating 1st unit of blood well. Will continue to monitor. Initialized on 05/25/20 11:13 - END OF NOTE Code(s): U07.1 - COVID-19; J12.89 - OTHER VIRAL PNEUMONIA (2) Pancreatitis, acute Current Visit: Yes Status: Acute Qualifiers: Pancreatitis type: unspecified pancreatitis type Acute pancreatitis complication: unspecified Qualified Code(s): K85.90 - Acute pancreatitis without necrosis or infection, unspecified Code(s): K85.90 - ACUTE PANCREATITIS WITHOUT NECROSIS OR INFECTION, UNSP (3) Myeloproliferative disease Current Visit: Yes Status: Chronic Assessment & Plan: received 2 units of blod transfusion Code(s): D47.1 - CHRONIC MYELOPROLIFERATIVE DISEASE
[2020-05-26] MEDS: Sodium Chloride 0.9% 1000 ML 1,000 ML IV SCH (11:30)
[2020-05-26] MEDS: BABY ASPIRIN 81 MG CHEW PO SCH (11:42)
[2020-05-27] MEDS: Sodium Chloride 0.9% 1000 ML 1,000 ML IV SCH ×2 (02:43→15:02)
[2020-05-27 07:08] LABS: Hematocrit 26.2 % (42-50); Hemoglobin 8.2 gm/dl (12.5-18.0); Mean Cell Volume 110.1 fl (78-100); Mean Corpuscular Hemoglobin 34.5 pg (26-32); Mean Corpuscular Hgb Concent. 31.3 g/dl (32-36); Mean Platelet Volume 11.6 fl (7.5-11.0); Platelet Count 303 K/mm3 (150-450); Red Blood Count 2.38 M/mm3 (4.1-5.6); Red Cell Distribution Width 20.4 % (11.5-14.0); White Blood Count 4.1 K/mm3 (4.0-10.5)
[2020-05-27 07:11] LABS: ALBUMIN 3.4 g/dL (3.5-5.0); ALKALINE PHOSPHATASE 93 U/L (38-126); AMYLASE 157 U/L (30-110); ANION GAP 9.2 MEQ/L (5-15); BLOOD UREA NITROGEN 9 mg/dL (9-20); CHLORIDE 103 mmol/L (98-107); Calcium 8.9 mg/dL (8.4-10.2); Carbon Dioxide 28 mmol/L (22-30); Creatinine 1 1.21 mg/dL (0.66-1.25); EST GLOMERULAR FILTRATION RATE > 60.0 ML/MIN; Glucose 112 mg/dL (74-106); LIPASE 393 U/L (23-300); SGOT/AST 41 U/L (17-59); SGPT/ALT 28 U/L (0-50); SODIUM 137 mmol/L (137-145); Total Protein 7.4 g/dL (6.3-8.2)
[2020-05-27 07:15] LABS: Potassium 2.9 mmol/L (3.5-5.1)
[2020-05-27 07:33] LABS: BAND 1 % (0.0-2.0); Lymphocytes 22 % (24-44); Monocyte 1 % (0.0-12.0); Neutrophils 76 % (36.-66.); Total Cells Counted 100
[2020-05-27 07:36] LABS: ANISOCYTOSIS 1+; Platelet Estimate NORMAL (NORMAL); Poikilocytosis 1+
--- NOTE | 2020-05-27 07:55 | PCM.NOTE ---
Date and Time: 05/27/20 0752 Subjective Assessment: doing ok, still very short of breath. no fever - Review of Systems Constitutional: No Fever, No Chills Eyes: No Symptoms Ears, Nose, & Throat: No Symptoms Respiratory: Orthopnea, Short Of Breath, Wheezing, No Cough Cardiac: No Chest Pain, No Edema, No Syncope Abdominal/Gastrointestinal: No Abdominal Pain, No Nausea, No Vomiting, No Diarrhea Genitourinary Symptoms: No Dysuria Musculoskeletal: No Back Pain, No Neck Pain Skin: No Rash Neurological: No Dizziness, No Focal Weakness, No Sensory Changes Psychological: No Symptoms Endocrine: No Symptoms Hematologic/Lymphatic: No Symptoms Immunological/Allergic: No Symptoms Objective Exam General Appearance: no apparent distress, alert Neurologic Exam: alert, oriented x 3, cooperative, normal mood/affect, nml cerebellar function, sensation nml, No motor deficits Skin Exam: normal color, warm, dry Eye Exam: PERRL, EOMI, eyes nml inspection Ears, Nose, Throat Exam: normal ENT inspection, pharynx normal, moist mucous membranes Neck Exam: normal inspection, non-tender, supple, full range of motion Respiratory Exam: diminished breath sounds, crackles/rales, rhonchi, wheezing, No respiratory distress Cardiovascular Exam: regular rate/rhythm, normal heart sounds Gastrointestinal/Abdomen Exam: soft, No tenderness, No mass Extremity Exam: normal inspection, normal range of motion Back Exam: normal inspection, normal range of motion, No CVA tenderness, No vertebral tenderness Male Genitalia Exam: deferred Rectal Exam: deferred OBJECTIVE DATA Vital Signs: Vital Signs - 24 hr Temp Pulse Resp BP Pulse Ox 05/27/20 05:43 85 20 93 L 05/27/20 03:59 99.3 F 88 19 135/62 95 05/27/20 01:45 90 19 94 L 05/26/20 23:35 99.4 F 71 19 143/65 96 05/26/20 22:08 83 20 94 L 05/26/20 20:02 98.5 F 70 20 144/65 96 05/26/20 19:50 93 L 05/26/20 18:00 10 L 05/26/20 17:51 84 16 94 L 05/26/20 16:00 77 18 125/74 92 L 05/26/20 14:00 26 H 05/26/20 13:58 100 H 19 90 L 05/26/20 12:00 76 24 93 L 05/26/20 10:00 24 05/26/20 09:44 88 16 94 L 05/26/20 08:46 97 05/26/20 08:00 18 Pain Assessment - Last Documented Pain Intensity 0 Pain Scale Used FLACC Intake and Output: Intake & Output 05/24/20 05/25/20 05/26/20 05/27/20 11:59 11:59 11:59 11:59 Intake Total 3023 2787 3482 2302 Output Total 3450 2100 3100 3175 Balance -427 717 382 873 Weight 85.5 kg 87.6 kg 87 kg Lab Results: Lab Results-Last 24 Hours 05/26/20 05/26/20 05/26/20 Range/Units 06:00 06:30 06:30 WBC (4.0-10.5) K/mm3 RBC (4.1-5.6) M/mm3 Hgb (12.5-18.0) gm/dl Hct (42-50) % MCV (78-100) fl MCH (26-32) pg MCHC (32-36) g/dl RDW (11.5-14.0) % Plt Count (150-450) K/mm3 MPV (7.5-11.0) fl Segmented Neutrophils (36.-66.) % Band Neutrophils (0.0-2.0) % Lymphocytes (Manual) (24-44) % Monocytes (Manual) (0.0-12.0) % Platelet Estimate (NORMAL) RBC Morphology Poikilocytosis Anisocytosis Sodium 138 (137-145) mmol/L Potassium 2.8 L* (3.5-5.1) mmol/L Chloride 104 (98-107) mmol/L Carbon Dioxide 26 (22-30) mmol/L Anion Gap 10.9 (5-15) MEQ/L BUN (9-20) mg/dL Creatinine (0.66-1.25) mg/dL Estimated GFR ML/MIN Glucose (74-106) mg/dL Calcium (8.4-10.2) mg/dL Total Bilirubin (0.2-1.3) mg/dL AST (17-59) U/L ALT (0-50) U/L Alkaline Phosphatase (38-126) U/L Serum Total Protein (6.3-8.2) g/dL Albumin (3.5-5.0) g/dL Amylase 171 H (30-110) U/L Lipase 488 H (23-300) U/L Slides for Path Review YES 05/26/20 05/27/20 05/27/20 Range/Units 15:45 06:25 06:25 WBC 4.1 (4.0-10.5) K/mm3 RBC 2.38 L (4.1-5.6) M/mm3 Hgb 8.2 L (12.5-18.0) gm/dl Hct 26.2 L (42-50) % MCV 110.1 H (78-100) fl MCH 34.5 H (26-32) pg MCHC 31.3 L (32-36) g/dl RDW 20.4 H (11.5-14.0) % Plt Count 303 (150-450) K/mm3 MPV 11.6 H (7.5-11.0) fl Segmented Neutrophils 76 H (36.-66.) % Band Neutrophils 1 (0.0-2.0) % Lymphocytes (Manual) 22 L (24-44) % Monocytes (Manual) 1 (0.0-12.0) % Platelet Estimate NORMAL (NORMAL) RBC Morphology ABNORMAL Poikilocytosis 1+ Anisocytosis 1+ Sodium 137 (137-145) mmol/L Potassium 3.3 L 2.9 L* (3.5-5.1) mmol/L Chloride 103 (98-107) mmol/L Carbon Dioxide 28 (22-30) mmol/L Anion Gap 9.2 (5-15) MEQ/L BUN 9 (9-20) mg/dL Creatinine 1.21 (0.66-1.25) mg/dL Estimated GFR > 60.0 ML/MIN Glucose 112 H (74-106) mg/dL Calcium 8.9 (8.4-10.2) mg/dL Total Bilirubin 0.70 (0.2-1.3) mg/dL AST 41 (17-59) U/L ALT 28 (0-50) U/L Alkaline Phosphatase 93 (38-126) U/L Serum Total Protein 7.4 (6.3-8.2) g/dL Albumin 3.4 L (3.5-5.0) g/dL Amylase 157 H (30-110) U/L Lipase 393 H (23-300) U/L Slides for Path Review Assessment/Plan (1) Hypokalemia due to loss of potassium Current Visit: Yes Status: Acute Assessment & Plan: will start another K rider 40 Meq today Code(s): E87.6 - HYPOKALEMIA (2) Pneumonia due to 2019 novel coronavirus Current Visit: Yes Status: Acute Onset Date: ~05/23/20 Assessment & Plan: continue present management Code(s): U07.1 - COVID-19; J12.89 - OTHER VIRAL PNEUMONIA (3) Pancreatitis, acute Current Visit: Yes Status: Acute Qualifiers: Pancreatitis type: unspecified pancreatitis type Acute pancreatitis complication: unspecified Qualified Code(s): K85.90 - Acute pancreatitis without necrosis or infection, unspecified Code(s): K85.90 - ACUTE PANCREATITIS WITHOUT NECROSIS OR INFECTION, UNSP (4) 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
[2020-05-27] MEDS: POTASSIUM CHLORIDE 20 mEq IN WATER 100ML 20 MEQ/100 ML BAG IV SCH ×2 (08:53→11:10)
[2020-05-27] MEDS: ECOTRIN 81 MG PO SCH (09:20)
[2020-05-27] MEDS: hydroDIURIL 25 MG PO SCH (09:36)
[2020-05-27] MEDS: Lopressor 50 MG PO SCH (09:36)
[2020-05-27] MEDS: NEURONTIN 300 MG PO SCH ×3 (09:36→21:24)
[2020-05-27] MEDS: NORVASC 5 MG PO SCH (09:37)
[2020-05-27] MEDS: Zestril 5 MG PO SCH (09:37)
[2020-05-27] MEDS: Protonix 40MG Tablet PO SCH (09:37)
[2020-05-27] MEDS: ZYLOPRIM 300 MG PO SCH (09:37)
[2020-05-27] MEDS: ASTELIN NASAL INTRANASAL SCH ×2 (10:02→21:24)
[2020-05-27] MEDS: TYLENOL EXTRA STRENGTH 500 MG PO PRN ×2 (10:17→18:39)
[2020-05-27] MEDS: Lomotil PO PRN (14:06)
[2020-05-27] MEDS: Ativan 1 MG PO SCH (18:29)
[2020-05-27] MEDS: Ativan 1 MG PO PRN (21:24)
[2020-05-28] MEDS: Sodium Chloride 0.9% 1000 ML 1,000 ML IV SCH ×3 (02:15→20:24)
[2020-05-28 05:52] LABS: ANION GAP 8.1 MEQ/L (5-15); BLOOD UREA NITROGEN 9 mg/dL (9-20); CHLORIDE 102 mmol/L (98-107); Calcium 8.9 mg/dL (8.4-10.2); Carbon Dioxide 31 mmol/L (22-30); Creatinine 1 1.17 mg/dL (0.66-1.25); EST GLOMERULAR FILTRATION RATE > 60.0 ML/MIN; Glucose 110 mg/dL (74-106); Potassium 3.1 mmol/L (3.5-5.1); SODIUM 138 mmol/L (137-145)
[2020-05-28] MEDS: ECOTRIN 81 MG PO SCH (09:21)
[2020-05-28] MEDS: ASTELIN NASAL INTRANASAL SCH ×2 (09:21→22:22)
[2020-05-28] MEDS: NEURONTIN 300 MG PO SCH ×3 (09:22→22:22)
[2020-05-28] MEDS: Lopressor 50 MG PO SCH (09:22)
[2020-05-28] MEDS: hydroDIURIL 25 MG PO SCH (09:22)
[2020-05-28] MEDS: NORVASC 5 MG PO SCH (09:23)
[2020-05-28] MEDS: Zestril 5 MG PO SCH (09:23)
[2020-05-28] MEDS: Protonix 40MG Tablet PO SCH (09:23)
[2020-05-28] MEDS: ZYLOPRIM 300 MG PO SCH (09:24)
[2020-05-28] MEDS: Lomotil PO PRN (09:27)
[2020-05-28 09:32] LABS: AMYLASE 135 U/L (30-110); LIPASE 318 U/L (23-300)
[2020-05-28] MEDS: Klor Con 10 MEQ PO SCH ×2 (18:12→22:21)
[2020-05-28] MEDS: Ativan 1 MG PO PRN (22:22)
[2020-05-29 06:22] LABS: Potassium 3.3 mmol/L (3.5-5.1)
[2020-05-29 06:23] LABS: AMYLASE 159 U/L (30-110); LIPASE 420 U/L (23-300)
[2020-05-29] MEDS: Klor Con 10 MEQ PO SCH (09:44)
[2020-05-29] MEDS: Lopressor 50 MG PO SCH (09:44)
[2020-05-29] MEDS: Protonix 40MG Tablet PO SCH (09:44)
[2020-05-29] MEDS: Zestril 5 MG PO SCH (09:44)
[2020-05-29] MEDS: ZYLOPRIM 300 MG PO SCH (09:44)
[2020-05-29] MEDS: hydroDIURIL 25 MG PO SCH (09:44)
[2020-05-29] MEDS: ASTELIN NASAL INTRANASAL SCH (09:45)
[2020-05-29] MEDS: NEURONTIN 300 MG PO SCH (09:45)
[2020-05-29] MEDS: ECOTRIN 81 MG PO SCH (09:45)
[2020-05-29] MEDS: NORVASC 5 MG PO SCH (09:45)
[2020-05-29] MEDS: Lomotil PO PRN (09:46)
[2020-05-29 12:34] VITALS: BP 146/65; PULSE 62; O2SAT 96
== END 2020-05-29 13:40 | disposition home or self-care (01) | DRG 177 ==
LOC: MED SURG 17:25 → OBSVTOIN 05-19 12:00
PROVIDERS: ADMIT Family Medicine; ATTEND Family Medicine
DX: U07.1 COVID-19 (principal); J12.89 Other viral pneumonia; K85.90 Acute pancreatitis without necrosis or infection, unspecified; D47.1 Chronic myeloproliferative disease; R51.9 Headache, unspecified; R11.2 Nausea with vomiting, unspecified; R10.9 Unspecified abdominal pain; Z79.899 Other long term (current) drug therapy; I10 Essential (primary) hypertension; R53.1 Weakness; R79.1 Abnormal coagulation profile; D53.9 Nutritional anemia, unspecified; E87.6 Hypokalemia
CPT/HCPCS: 36415; 36430; 70450; 71250; 74176; 80048; 80051; 80053; 81015; 82150; 82607; 83605; 83690; 84132; 85025; 85027; 85379; 85610; 86850; 86900; 86901; 86922; 87040; 87077; 87086; 87186; 87400; 93268; 94762; G0378; P9016; U0003; J1650; J1885; J2405; J3480; A9270-GY

== ENCOUNTER 2020-12-11 11:45 | Observation (INO) | payer MEDICARE, OTHER ==
[2020-12-11 13:09] LABS: Hematocrit 20.7 % (42-50); Mean Cell Volume 113.7 fl (78-100); Mean Corpuscular Hemoglobin 36.8 pg (26-32); Mean Corpuscular Hgb Concent. 32.4 g/dl (32-36); Mean Platelet Volume 10.7 fl (7.5-11.0); Platelet Count 476 K/mm3 (150-450); Red Cell Distribution Width 20.3 % (11.5-14.0); White Blood Count 5.4 K/mm3 (4.0-10.5)
[2020-12-11 13:24] LABS: Hemoglobin 6.7 gm/dl (12.5-18.0); Red Blood Count 1.82 M/mm3 (4.1-5.6)
[2020-12-11 13:26] LABS: AMYLASE 146 U/L (30-110); LIPASE 266 U/L (23-300)
[2020-12-11 13:28] LABS: ALBUMIN 4.5 g/dL (3.5-5.0); ANION GAP 17.8 MEQ/L (5-15); BILIRUBIN,TOTAL 0.4 mg/dL (0.2-1.3); Calcium 9.3 mg/dL (8.4-10.2); Creatinine 1 1.85 mg/dL (0.66-1.25); EST GLOMERULAR FILTRATION RATE 38.1 ML/MIN; Potassium 4.6 mmol/L (3.5-5.1); Total Protein 8.3 g/dL (6.3-8.2)
[2020-12-11 14:04] LABS: Appearance TURBID (CLEAR); Bacteria PACKED /HPF (NEGATIVE); Bilirubin NEGATIVE (NEGATIVE); Blood SMALL Ery/ul (0-5); Glucose NEGATIVE (NEGATIVE); Ketones NEGATIVE (NEGATIVE); Leukocyte Esterase MODERATE (NEGATIVE); Mucus SLIGHT /HPF (NEGATIVE); Nitrite NEGATIVE (NEGATIVE); Protein,Urine Dip 30 (Negative); Specific Gravity 1.009 (1.005-1.025); Urobilinogen NEGATIVE mg/dL (0-1); WBC 51-100 /HPF (0-5)
[2020-12-11] MEDS: ROCEPHIN 1 Gm-D5w 50 ml Bag** 1 G/50 ML IVPB IV SCH (14:23)
[2020-12-11] MEDS: Sodium Chloride 0.9% 1000 ML 1,000 ML IV SCH (14:23)
--- NOTE | 2020-12-11 14:32 | XRAY ---
Indication: Abdomen pain. History pancreatitis. Total cystectomy and prostatectomy. Multiple contiguous axial images obtained through the abdomen and pelvis without contrast. Comparison: May 18, 2020. Lung bases again demonstrates tiny left lower lobe calcified granuloma. No infiltrate or effusion. Heart is not enlarged. Noncontrasted stomach and bowel loops nonobstructed. Stable intact right hemicolectomy, descending/sigmoid diverticulosis, bilateral renal cortical thinning/scarring, 19.9 cm hepatomegaly, 13 cm splenomegaly, cholecystectomy, hepatic/splenic calcified granulomas, prostatectomy, total cystectomy with right lower quadrant urinary diversion ileal conduit, and right lower quadrant stoma. No free fluid/air. Remaining liver, pancreas, spleen, adrenal glands, kidneys, and ureters are unremarkable for noncontrast exam. Stable mild scattered aortoiliac calcifications without AAA. Osseous structures intact again with mild/moderate degenerative changes throughout the spine and mild dextrorotoscoliosis centered at L2. No ventral or inguinal hernias. Impression: Stable CT abdomen/pelvis without contrast exam again demonstrating colonic diverticulosis, postsurgical changes, right lower quadrant urinary diversion ileal conduit/stoma, chronic bony findings, and old granulomatous disease. No new/acute findings.
[2020-12-11] MEDS ORDERED: Lasix 20 MG/2 ML IV SCH (16:35)
[2020-12-11 17:33] LABS: Iron 74 ug/dL (49-181); Iron Saturation 35 % (20-39); TIBC 211 ug/dL (261-497)
[2020-12-11 18:33] LABS: Folate (Folic Acid) 7.89 ng/mL (2.76 - >20)
[2020-12-11 18:34] LABS: ABO TYPING O; Antibody Screen NEGATIVE (NEGATIVE); RH TYPING POSITIVE
[2020-12-11 18:37] LABS: CROSS MATCH (PRBC) COMPATIBLE (COMPATIBLE)
[2020-12-11] MEDS ORDERED: Ativan 1 MG PO SCH (22:00)
[2020-12-11] MEDS: Lopressor 50 MG PO SCH (22:45)
[2020-12-12] MEDS: Sodium Chloride 0.9% 1000 ML 1,000 ML IV SCH ×2 (00:45→05:26)
[2020-12-12 04:59] LABS: Hematocrit 26.7 % (42-50); Hemoglobin 8.7 gm/dl (12.5-18.0); Mean Cell Volume 103.5 fl (78-100); Mean Corpuscular Hemoglobin 33.7 pg (26-32); Mean Corpuscular Hgb Concent. 32.6 g/dl (32-36); Mean Platelet Volume 10.9 fl (7.5-11.0); Platelet Count 407 K/mm3 (150-450); Red Blood Count 2.58 M/mm3 (4.1-5.6); Red Cell Distribution Width 22.4 % (11.5-14.0); White Blood Count 4.9 K/mm3 (4.0-10.5)
[2020-12-12 05:25] LABS: ALBUMIN 4.2 g/dL (3.5-5.0); ANION GAP 17.4 MEQ/L (5-15); BILIRUBIN,TOTAL 0.5 mg/dL (0.2-1.3); Calcium 9.2 mg/dL (8.4-10.2); Creatinine 1 1.55 mg/dL (0.66-1.25); EST GLOMERULAR FILTRATION RATE 46.7 ML/MIN; Potassium 4.2 mmol/L (3.5-5.1); Total Protein 7.8 g/dL (6.3-8.2)
[2020-12-12 06:50] LABS: Slide Review YES
--- NOTE | 2020-12-12 09:13 | XRAY ---
Indication: Chest pain following blood transfusion. Comparison: None Portable apical lordotic chest clear. Heart not enlarged with small left hilar calcified node. Bony thorax intact with mild osteopenia, degenerative changes, and mild levoscoliosis. Impression: Nonacute chest with chronic features.
[2020-12-12] MEDS: Lopressor 50 MG PO SCH (09:37)
[2020-12-12] MEDS: ROCEPHIN 1 Gm-D5w 50 ml Bag** 1 G/50 ML IVPB IV SCH (09:38)
[2020-12-12 09:51] LABS: AMYLASE 156 U/L (30-110); LIPASE 339 U/L (23-300); TROPONIN < 0.012 ng/mL (0.000-0.034)
[2020-12-12] MEDS ORDERED: ECOTRIN 81 MG PO SCH (10:00)
[2020-12-12] MEDS ORDERED: ZYLOPRIM 300 MG PO SCH (10:00)
[2020-12-12] MEDS ORDERED: hydroDIURIL 25 MG PO SCH (10:00)
[2020-12-12] MEDS ORDERED: Pepcid 20 MG PO SCH (10:00)
[2020-12-12] MEDS ORDERED: Zestril 5 MG PO SCH (10:00)
[2020-12-12] MEDS ORDERED: NORVASC 5 MG PO SCH (10:00)
[2020-12-12] MEDS ORDERED: Diflucan 100 MG PO SCH (10:00)
[2020-12-12 12:40] VITALS: BP 120/60; PULSE 59; O2SAT 97
[2020-12-12] MEDS ORDERED: Golytely Solution 4000 ML PO ONE (14:00)
--- NOTE | 2020-12-26 22:36 | PCM.SSS ---
History of Present Illness - Chief Complaint Chief Complaint: Abd Pain,UTI,Fever Date: 12/12/20 History of Present Illness: is a 75 year old male. Pt. presented to office where he appeared very ill, pt. 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 Pt. notes ongoing pain and discomfort similar to previous pancreatic pain in the past, and fevers to 102. Pt will be admitted for further evaluation and treatment as found - Review of Systems Constitutional: Fever, Fatigue Eyes: No Symptoms Ears, Nose, & Throat: No Symptoms Respiratory: No Symptoms Cardiac: No Symptoms Abdominal/Gastrointestinal: Abdominal Pain, Nausea, Vomiting, Diarrhea Genitourinary Symptoms: No Symptoms Musculoskeletal: No Symptoms Skin: No Symptoms Neurological: No Symptoms Psychological: No Symptoms Endocrine: No Symptoms Hematologic/Lymphatic: No Symptoms Immunological/Allergic: No Symptoms Medications & Allergies Home Medications: Home Medication List Allopurinol 300 mg [Zyloprim 300 mg] 300 mg PO QAM 05/19/20 [History Confirmed 12/17/20] Amlodipine Besylate 5 mg [Norvasc 5 mg] 5 mg PO QAM 05/19/20 [History Confirmed 12/17/20] Aspirin 81 gm Chew [Baby Aspirin 81 mg Chew] 81 mg PO QAM 05/19/20 [History Confirmed 12/17/20] Lisinopril 5 mg [Zestril 5 MG] 5 mg PO QAM 05/19/20 [History Confirmed 12/17/20] Metoprolol Tartrate 50 mg [Lopressor 50 MG] 50 mg PO BID 05/19/20 [History Confirmed 12/17/20] hydroCHLOROthiazide [Hydrochlorothiazide] 25 mg PO QAM 05/19/20 [History Confirmed 12/17/20] LORazepam [Lorazepam] 1 mg PO HS 12/11/20 [History Confirmed 12/17/20] Allergies/Adverse Reactions: Allergies Allergy/AdvReac Type Severity Reaction Status Date / Time promethazine [From Phenergan] Allergy Intermediate Difficulty Verified 12/17/20 16:39 Breathing - Past Medical History Past Medical History: Yes Neurological History: No Pertinent History ENT History: Cataracts Cardiac History: No Pertinent History Respiratory History: No Pertinent History Endocrine Medical History: No Pertinent History Musculoskelatal History: Degenerative Disk Disease GI Medical History: Gallbladder Disease History: Other Pyscho-Social History: No Pertinent History Male Reproductive Disorders: No Pertinent History Comment: Patient has interstitial cystitits and has a stoma on the right abdomen where he strait caths himself as needed with 14fr cath (Meenakshi pouch). - Past Surgical History Past Surgical History: Yes Neuro Surgical History: No Pertinent History Cardiac History: No Pertinent History Respiratory Surgery: No Pertinent History GI Surgical History: Appendectomy, Cholecystectomy Genitourinary Surgical Hx: No Pertinent History Musculskeletal Surgical Hx: Orthopedic Surgery, Other Male Surgical History: No Pertinent History Other Surgical History: spinal surgery; carpal tunnel bilat; Meenakshi pouch surgery - Social History Smoking Status: Never smoker Exposure to second hand smoke: No Alcohol: None Drug Use: none - Physical Exam General Appearance: mild distress, other (pale) Neurologic Exam: alert, cooperative Eye Exam: eyes nml inspection Ears, Nose, Throat Exam: normal ENT inspection, TMs normal, pharynx normal, moist mucous membranes Neck Exam: normal inspection, non-tender, supple, full range of motion Respiratory Exam: normal breath sounds, lungs clear, No chest tenderness Cardiovascular Exam: regular rate/rhythm, normal heart sounds, normal peripheral pulses Gastrointestinal/Abdomen Exam: soft, tenderness (diffusely tender) Rectal Exam: deferred Back Exam: normal inspection Extremity Exam: normal inspection Results - Labs Lab/Micro Results: Microbiology 12/11/20 12:40 Urine Culture - Final Urine, Catheterized Escherichia Coli Assessment/Plan (1) Abdominal pain Status: Acute Code(s): R10.9 - UNSPECIFIED ABDOMINAL PAIN (2) UTI (urinary tract infection) Status: Acute Code(s): N39.0 - URINARY TRACT INFECTION, SITE NOT SPECIFIED (3) Chronic renal insufficiency Status: Acute Code(s): N18.9 - CHRONIC KIDNEY DISEASE, UNSPECIFIED (4) Myeloproliferative disease Status: Chronic Code(s): D47.1 - CHRONIC MYELOPROLIFERATIVE DISEASE Hospital Summary - Hospital Course Hospital Course: Pt. admitted and found to have a UTI, and very anemic, he was transfused with 2 Units of prbc's, labs for pancreatitis were initially negative, but the next day were c/w pancreatitis. Pt. was feeling much better and was adament he could treat his pancreatitis at home and return if he started feeling worse. Pt. was discharged with strict instructions - Vitals & Intake/Output Vital Signs: Vital Signs Temperature 98.1 F 12/12/20 12:00 Pulse Rate 59 L 12/12/20 12:00 Respiratory Rate 18 12/12/20 12:00 Blood Pressure 120/60 12/12/20 12:00 O2 Sat by Pulse Oximetry 97 12/12/20 12:00 - Lab Result Diagrams: 12/12/20 04:25 12/12/20 04:25 Micro Results-Entire Visit: Microbiology 12/11/20 12:40 Urine Culture - Final Urine, Catheterized Escherichia Coli - Procedures and Test Procedures and Tests throughout Hospitalization: Therapy Orders & Screens 12/12/20 04:32 EKG STAT Comment: Diagnosis: Abd Pain,UTI,Fever - Discharge Discharge Date: 12/12/20 Disposition: Home, Self-Care Condition: Stable Prescriptions: Continue hydroCHLOROthiazide [Hydrochlorothiazide] 25 mg PO QAM Metoprolol Tartrate 50 mg [Lopressor 50 MG] 50 mg PO BID Lisinopril 5 mg [Zestril 5 MG] 5 mg PO QAM Aspirin 81 gm Chew [Baby Aspirin 81 mg Chew] 81 mg PO QAM Amlodipine Besylate 5 mg [Norvasc 5 mg] 5 mg PO QAM Allopurinol 300 mg [Zyloprim 300 mg] 300 mg PO QAM LORazepam [Lorazepam] 1 mg PO HS Outpatient Orders: LIPASE Time Frame: 12/14/20, Facility: [facility], Location: LABORATORY Instructions: Pancreatitis, Anemia Caused by Low Iron Additional Instructions: You will need to stay on a clear liquid diet until Thursday12/14/20 until your FU visit with Dr Narvaez. You may have jellow, broth, water, and juices. Please be at the hospital by 10 am to have Lipase drawn on 12/14/20. Follow up with: ARACELIS NARVAEZ [Primary Care Provider] - 12/14/20 1:00 pm
== END 2020-12-12 12:55 | disposition home or self-care (01) ==
LOC: MED SURG 12:15
PROVIDERS: ADMIT Family Medicine; ATTEND Family Medicine
DX: R10.9 Unspecified abdominal pain (principal); N39.0 Urinary tract infection, site not specified; R53.83 Other fatigue; R11.2 Nausea with vomiting, unspecified; N18.9 Chronic kidney disease, unspecified; D47.1 Chronic myeloproliferative disease; Z79.899 Other long term (current) drug therapy; Z96.0 Presence of urogenital implants
CPT/HCPCS: 36415; 36430; 71045; 74176; 80053; 81001; 82150; 82607; 82728; 82746; 83540; 83550; 83690; 84484; 85027; 85045; 86078; 86850; 86900; 86901; 86922; 87077; 87086; 87186; 93005; G0378; P9016; J0696; J1940; A9270-GY

== ENCOUNTER 2020-12-17 16:06 | Emergency (ER) | payer MEDICARE, OTHER ==
[2020-12-17] MEDS ORDERED: Sodium Chloride 0.9% 1000 ML 1,000 ML IV SCH (17:00)
[2020-12-17 17:50] LABS: Absolute Neutrophil Ct (ANC) 1.37 (1.4-6.9); BASOPHIL % 0.3 % (0.0-0.4); Basophil (Absolute #) 0.01 (0-0.4); Eosinophil % 2.1 % (0.00-5.0); Eosinophil (Absolute #) 0.06 (0-0.5); Hematocrit 27.8 % (42-50); Hemoglobin 9.1 gm/dl (12.5-18.0); Lymphocyte (Absolute #) 1.21 (1.0-4.6); Lymphocytes % 41.4 % (24.0-44.0); Mean Cell Volume 102.6 fl (78-100); Mean Corpuscular Hemoglobin 33.6 pg (26-32); Mean Corpuscular Hgb Concent. 32.7 g/dl (32-36); Mean Platelet Volume 11.1 fl (7.5-11.0); Monocyte (Absolute #) 0.27 (0.0-1.3); Monocytes % 9.2 % (0.0-12.0); Platelet Count 390 K/mm3 (150-450); Red Blood Count 2.71 M/mm3 (4.1-5.6); Red Cell Distribution Width 20.2 % (11.5-14.0); White Blood Count 2.9 K/mm3 (4.0-10.5)
[2020-12-17] MEDS ORDERED: Sodium Chloride 0.9% 1000 ML 1,000 ML ONE (18:00)
[2020-12-17 18:13] LABS: ALBUMIN 4.6 g/dL (3.5-5.0); ANION GAP 19.8 MEQ/L (5-15); BILIRUBIN,TOTAL 0.6 mg/dL (0.2-1.3); Calcium 9.5 mg/dL (8.4-10.2); Creatinine 1 1.62 mg/dL (0.66-1.25); EST GLOMERULAR FILTRATION RATE 44.4 ML/MIN; Potassium 4.6 mmol/L (3.5-5.1); Total Protein 8.4 g/dL (6.3-8.2)
--- NOTE | 2020-12-17 18:41 | ERPHSYRPT ---
- History of Present Illness Time Seen by Provider: 12/17/20 16:22 Exam Limitations: no limitations Patient Subjective Stated Complaint: c/o weakness Triage Nursing Assessment: Patient is alert and answering questions appropriately; A&O X 3. Ambulating without difficulties but c/o weakness with moderate exertion. No SOB noted. Denies chest pain. Denies N/V/D. Current heart rate low; bradycardia. Skin D/C/I; warm and pink. Physician History: Patient is a 75-year-old male presents to emergency department complaint of generalized weakness. Patient states that he was in our ED last week. Patient was discharged on Thursday. Patient was diagnosed with pancreatitis and anemia. Patient received 2 units of PRBCs. Patient was discharged home. Patient went to [place]. Patient was called by his primary care doctor, Dr. Narvaez and advised to come to the hospital for an admission. Patient is not sure what the abnormality was that prompted his primary care doctor to want him to come to the ED. However patient states that he has not been able to eat due to abdominal pain. Patient is concerned that his pancreatitis may be worsening. Patient has not eaten very much and now feels very weak. No associated chest pain or shortness of breath. No nausea vomiting or diaphoresis. Patient pain occurs after he eats or drinks. Symptoms are moderate in intensity. Patient voices no other complaints concerns at this time. Timing/Duration: day(s) Activities at Onset: none (2 days) Quality: aching Abdominal Pain Onset Location: epigastric Pain Radiation: no radiation Severity of Pain-Max: moderate Severity of Pain-Current: mild Modifying Factors: Improves With: nothing Associated Symptoms: denies symptoms, No chest pain, No diaphoresis, No diarrhea, No headache, No loss of appetite, No rash, No shortness of breath, No vomiting, No weakness Allergies/Adverse Reactions: promethazine [From Phenergan] Allergy (Intermediate, Verified 12/17/20 16:39) Difficulty Breathing Home Medications: Allopurinol 300 mg [Zyloprim 300 mg] 300 mg PO QAM 05/19/20 [History] Amlodipine Besylate 5 mg [Norvasc 5 mg] 5 mg PO QAM 05/19/20 [History] Aspirin 81 gm Chew [Baby Aspirin 81 mg Chew] 81 mg PO QAM 05/19/20 [History] Lisinopril 5 mg [Zestril 5 MG] 5 mg PO QAM 05/19/20 [History] Metoprolol Tartrate 50 mg [Lopressor 50 MG] 50 mg PO BID 05/19/20 [H istory] hydroCHLOROthiazide [Hydrochlorothiazide] 25 mg PO QAM 05/19/20 [History] LORazepam [Lorazepam] 1 mg PO HS 12/11/20 [History] Hx Influenza Vaccination/Date Given: No Immunizations Up to Date: Yes Travel Risk - International Travel Have you traveled outside of the country in past 3 weeks: No - Coronavirus Screening Are you exhibiting any of the following symptoms?: No Close contact with a COVID-19 positive Pt in past 14-21 Days: No - Vaccine Status Have you recieved a Covid-19 vaccination: Yes 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: [employer] - Vaccination Dates Date of 2cond Vaccination (if applicable): 08/2020 - Review of Systems Constitutional: No Symptoms, No Fever, No Chills Eyes: No Symptoms Ears, Nose, & Throat: No Symptoms Respiratory: No Symptoms, No Cough, No Dyspnea Cardiac: No Symptoms, No Chest Pain, No Edema, No Syncope Abdominal/Gastrointestinal: No Symptoms, No Abdominal Pain, No Nausea, No Vomiting, No Diarrhea Genitourinary Symptoms: No Symptoms, No Dysuria Musculoskeletal: No Symptoms, No Back Pain, No Neck Pain Skin: No Symptoms, No Rash Neurological: No Symptoms, No Dizziness, No Focal Weakness, No Sensory Changes Psychological: No Symptoms Endocrine: No Symptoms Hematologic/Lymphatic: No Symptoms Immunological/Allergic: No Symptoms All Other Systems: Reviewed and Negative - Past Medical History Pertinent Past Medical History: Yes Neurological History: No Pertinent History ENT History: Cataracts Cardiac History: No Pertinent History Respiratory History: No Pertinent History Endocrine Medical History: No Pertinent History Musculoskeletal History: Degenerative Disk Disease GI Medical History: Gallbladder Disease, Pancreatitis History: Other Psycho-Social History: No Pertinent History Male Reproductive Disorders: No Pertinent History Other Medical History: Patient has interstitial cystitits and has a stoma on the right abdomen where he strait caths himself as needed with 14fr cath (Meenakshi pouch). - Past Surgical History Past Surgical History: Yes Neuro Surgical History: No Pertinent History Cardiac: No Pertinent History Respiratory: No Pertinent History Gastrointestinal: Appendectomy, Cholecystectomy Genitourinary: No Pertinent History Musculoskeletal: Orthopedic Surgery, Other Male Surgical History: No Pertinent History Other Surgical History: spinal surgery; carpal tunnel bilat; Meenakshi pouch surgery - Social History Smoking Status: Never smoker Exposure to second hand smoke: No Drug Use: none Patient Lives Alone: No (lives with ) - Nursing Vital Signs Nursing Vital Signs: Initial Vital Signs Temperature 97.2 F 12/17/20 16:22 Pulse Rate 51 L 12/17/20 16:22 Respiratory Rate 19 12/17/20 16:22 Blood Pressure 135/63 12/17/20 16:22 O2 Sat by Pulse Oximetry 100 12/17/20 16:22 Pain Scale Pain Intensity 2 - Physical Exam General Appearance: no apparent distress, alert Eye Exam: PERRL/EOMI, eyes nml inspection Ears, Nose, Throat Exam: normal ENT inspection, pharynx normal, moist mucous membranes Neck Exam: normal inspection, non-tender, supple, full range of motion Respiratory Exam: normal breath sounds, lungs clear, No respiratory distress Cardiovascular Exam: regular rate/rhythm, normal heart sounds Gastrointestinal/Abdomen Exam: soft, No tenderness, No mass Back Exam: normal inspection, normal range of motion, No CVA tenderness, No vertebral tenderness Extremity Exam: normal inspection, normal range of motion, pelvis stable Neurologic Exam: alert, oriented x 3, cooperative, normal mood/affect, nml cerebellar function, sensation nml, No motor deficits Skin Exam: normal color, warm, dry Lymphatic Exam: adenopathy SpO2 Interpretation: normal SpO2: 99 O2 Delivery: Room Air - Course Nursing assessment & vital signs reviewed: Yes EKG Interpreted by Me: RATE (49), Sinus Elpidio, NORMAL AXIS, NORMAL INTERVALS - CT Exams Abdomen/Pelvis CT Interpretation: Tele-radiologist Report (Markedly distended right lower quadrant Daniels pouch. 8.8 x 14.6 x 12.5. Subsequent reflux with mild to moderate bilateral hydronephrosis and hydroureter. No perinephric fluid. New small hiatal hernia. Stable right hemicolectomy, cystectomy prostatectomy and bilateral renal scarring. Divertic) Ordered Tests: Active Orders 24 hr Category Date Time Status Street [employer] STAT Care 12/17/20 16:57 Active EKG-ER Only STAT Care 12/17/20 16:57 Active IV Insertion STAT Care 12/17/20 16:57 Active Pulse Oximetry (ED) STAT Care 12/17/20 16:57 Active ABDOMEN AND PELVIS W/0 CONTRAS [CT] Stat Exams 12/17/20 18:38 Taken CBC W DIFF Stat Lab 12/17/20 17:40 Completed CMP Stat Lab 12/17/20 17:40 Completed LIPASE Stat Lab 12/17/20 17:40 Completed MAGNESIUM Stat Lab 12/17/20 17:40 Completed TROPONIN Q3H Lab 12/17/20 17:40 Completed TROPONIN Q3H Lab 12/17/20 19:43 Completed TROPONIN Q3H Lab 12/17/20 23:00 Ordered TROPONIN Q3H Lab 12/18/20 02:00 Ordered TROPONIN Q3H Lab 12/18/20 05:00 Ordered UA W/RFX UR CULTURE Stat Lab 12/17/20 20:52 Completed Medication Summary Generic Name Dose Route Start Last Admin Trade Name Freq PRN Reason Stop Dose Admin Sodium Chloride 1,000 mls @ 50 mls/hr 12/17/20 17:00 12/17/20 18:01 Sodium Chloride 0.9% 1000 Ml IV 01/16/21 16:59 50 mls/hr .Q20H RONNI Administration Lab/Rad Data: Laboratory Result Diagrams 12/17/20 17:40 12/17/20 17:40 Laboratory Results 12/17/20 12/17/20 12/17/20 Range/Units 20:52 19:43 17:40 WBC (4.0-10.5) K/mm3 RBC (4.1-5.6) M/mm3 Hgb (12.5-18.0) gm/dl Hct (42-50) % MCV (78-100) fl MCH (26-32) pg MCHC (32-36) g/dl RDW (11.5-14.0) % Plt Count (150-450) K/mm3 MPV (7.5-11.0) fl Gran % (36.0-66.0) % Eos # (Auto) (0-0.5) Absolute Lymphs (auto) (1.0-4.6) Absolute Monos (auto) (0.0-1.3) Lymphocytes % (24.0-44.0) % Monocytes % (0.0-12.0) % Eosinophils % (0.00-5.0) % Basophils % (0.0-0.4) % Absolute Granulocytes (1.4-6.9) Basophils # (0-0.4) Sodium (137-145) mmol/L Potassium (3.5-5.1) mmol/L Chloride (98-107) mmol/L Carbon Dioxide (22-30) mmol/L Anion Gap (5-15) MEQ/L BUN (9-20) mg/dL Creatinine (0.66-1.25) mg/dL Estimated GFR ML/MIN Glucose (74-106) mg/dL Calcium (8.4-10.2) mg/dL Magnesium (1.6-2.3) mg/dL Total Bilirubin (0.2-1.3) mg/dL AST (17-59) U/L ALT (0-50) U/L Alkaline Phosphatase (38-126) U/L Troponin I < 0.012 < 0.012 (0.000-0.034) ng/mL Serum Total Protein (6.3-8.2) g/dL Albumin (3.5-5.0) g/dL Lipase (23-300) U/L Urine Color STRAW (YELLOW) Urine Appearance CLEAR (CLEAR) Urine pH 7.0 (5-6) Ur Specific Kermit 1.005 (1.005-1.025) Urine Protein NEGATIVE (Negative) Urine Ketones NEGATIVE (NEGATIVE) Urine Blood NEGATIVE (0-5) August/ul Urine Nitrite NEGATIVE (NEGATIVE) Urine Bilirubin NEGATIVE (NEGATIVE) Urine Urobilinogen NEGATIVE (0-1) mg/dL Ur Leukocyte Esterase NEGATIVE (NEGATIVE) Urine WBC (Auto) 0-2 (0-5) /HPF Urine RBC (Auto) NONE (0-2) /HPF U Epithel Cells (Auto) NONE (FEW) /HPF Urine Culture Reflexed NO (NO) Urine Glucose NEGATIVE (NEGATIVE) mg/dL 12/17/20 12/17/20 Range/Units 17:40 17:40 WBC 2.9 L (4.0-10.5) K/mm3 RBC 2.71 L (4.1-5.6) M/mm3 Hgb 9.1 L (12.5-18.0) gm/dl Hct 27.8 L (42-50) % MCV 102.6 H (78-100) fl MCH 33.6 H (26-32) pg MCHC 32.7 (32-36) g/dl RDW 20.2 H (11.5-14.0) % Plt Count 390 (150-450) K/mm3 MPV 11.1 H (7.5-11.0) fl Gran % 47.0 (36.0-66.0) % Eos # (Auto) 0.06 (0-0.5) Absolute Lymphs (auto) 1.21 (1.0-4.6) Absolute Monos (auto) 0.27 (0.0-1.3) Lymphocytes % 41.4 (24.0-44.0) % Monocytes % 9.2 (0.0-12.0) % Eosinophils % 2.1 (0.00-5.0) % Basophils % 0.3 (0.0-0.4) % Absolute Granulocytes 1.37 L (1.4-6.9) Basophils # 0.01 (0-0.4) Sodium 132 L (137-145) mmol/L Potassium 4.6 (3.5-5.1) mmol/L Chloride 98 (98-107) mmol/L Carbon Dioxide 19 L (22-30) mmol/L Anion Gap 19.8 H (5-15) MEQ/L BUN 29 H (9-20) mg/dL Creatinine 1.62 H (0.66-1.25) mg/dL Estimated GFR 44.4 ML/MIN Glucose 93 (74-106) mg/dL Calcium 9.5 (8.4-10.2) mg/dL Magnesium 2.0 (1.6-2.3) mg/dL Total Bilirubin 0.60 (0.2-1.3) mg/dL AST 27 (17-59) U/L ALT 20 (0-50) U/L Alkaline Phosphatase 104 (38-126) U/L Troponin I (0.000-0.034) ng/mL Serum Total Protein 8.4 H (6.3-8.2) g/dL Albumin 4.6 (3.5-5.0) g/dL Lipase 231 (23-300) U/L Urine Color (YELLOW) Urine Appearance (CLEAR) Urine pH (5-6) Ur Specific Kermit (1.005-1.025) Urine Protein (Negative) Urine Ketones (NEGATIVE) Urine Blood (0-5) August/ul Urine Nitrite (NEGATIVE) Urine Bilirubin (NEGATIVE) Urine Urobilinogen (0-1) mg/dL Ur Leukocyte Esterase (NEGATIVE) Urine WBC (Auto) (0-5) /HPF Urine RBC (Auto) (0-2) /HPF U Epithel Cells (Auto) (FEW) /HPF Urine Culture Reflexed (NO) Urine Glucose (NEGATIVE) mg/dL - Progress Progress: improved Progress Note: Reassessed. He feels well. Vitals are stable. CT scan revealed a distended Daniels pouch however at that time patient had urine in his pouch. Patient urinated using his catheter after returning from the CAT scanner. Patient states he feels much better. 2 - troponins. Patient ambulated in our ED. Patient tolerated p.o.'s well. Patient ate a complete meal in our ED. We tried calling Dr. Narvaez but Dr. Narvaez is currently being covered by Dr. Porras. The case was discussed with Dr. Porras. She feels that discharge would be appropriate as well. Dr. Narvaez will be in his office tomorrow morning. Per Dr. Porras patient may follow-up with Dr. Narvaez in the morning. 12/17/20 22:18 Patient agrees to follow-up with Dr. Narvaez in the morning as discussed. 12/17/20 22:19 Discussed with : Gurwinder Counseled pt/family regarding: lab results, diagnosis, need for follow-up, rad results - Departure Departure Disposition: Home Clinical Impression: Leukopenia, Megaloblastic anemia, Hyponatremia, High anion gap metabolic acidosis, Chronic renal insufficiency, Distended Meenakshi pouch Condition: Stable Critical Care Time: No Referrals: ARACELIS NARVAEZ [Primary Care Provider] - Additional Instructions: Discharge/Care Plan VANESSA CASTANEDA was seen on 12/17/20 in the Emergency Room. The patient was counseled regarding Diagnosis,Lab results, Imaging studies, need for follow up and when to return to the Emergency Room. Prescriptions given: Discharge Note I have spoken with the patient and/or caregivers. I have explained the patient's condition, diagnosis and treatment plan based on the information available to me at this time. I have answered the patient's and/or caregiver's questions and addressed any concerns. The patient and/or caregivers have as good understanding of the patient's diagnosis, condition and treatment plan as can be expected at this point. The vital signs have been stable. The patient's condition is stable and appropriate for discharge from the emergency department. The patient will pursue further outpatient evaluation with the primary care physician or other designated or consulting physician as outlined in the discharge instructions. The patient and/or caregivers are agreeable to this plan of care and follow-up instructions have been explained in detail. The patient and/or caregivers have received these instruction. The patient/and or caregivers are aware that any significant change in condition or worsening of symptoms should prompt an immediate return to this or the closest emergency department or call 911.
[2020-12-17 21:52] LABS: Appearance CLEAR (CLEAR); Bilirubin NEGATIVE (NEGATIVE); Blood NEGATIVE Ery/ul (0-5); Glucose NEGATIVE (NEGATIVE); Ketones NEGATIVE (NEGATIVE); Leukocyte Esterase NEGATIVE (NEGATIVE); Nitrite NEGATIVE (NEGATIVE); Protein,Urine Dip NEGATIVE (Negative); Specific Gravity 1.005 (1.005-1.025); Urobilinogen NEGATIVE mg/dL (0-1); WBC 0-2 /HPF (0-5)
[2020-12-17 22:26] VITALS: BP 113/52; PULSE 71; O2SAT 98
--- NOTE | 2020-12-18 23:27 | XRAY ---
Exam: CT of the abdomen and pelvis without IV contrast from 12/17/2020. CTDI: 12.90 mGy Comparison: CT of the abdomen and pelvis from 12/11/2020. Indication: 75-year-old male with abdominal pain. The patient has a history of prior right hemicolectomy, cystectomy, prostatectomy, appendectomy, and cholecystectomy. Evidently, he has a bilateral ureteral diversion with [place] pouch. Findings: The transverse heart size is slightly enlarged. Some right coronary artery vascular calcification is seen. Minimal compression atelectasis is seen within the posterior lung sulci. A tiny calcified granuloma is seen at the posterior left lung base. There is a suggestion of a minimal hiatal hernia. The liver appears of unremarkable volume. No gross hepatic mass is seen. Surgical clips consistent with prior cholecystectomy are noted. The spleen measures 10.5 cm in greatest transverse diameter and is remarkable for some calcified granulomas. The pancreas and adrenal glands appear unremarkable. The patient has a history of prior cystectomy with bilateral ureteral diversion and creation of an Meenakshi pouch with catheter/stoma within the anterior right lower quadrant. There is new significant distention of the [place] pouch which measures up to 14.2 cm in craniocaudal dimension, 14.3 cm in width, and 9.2 cm in AP depth. In addition, I see bilateral ureterohydronephrosis. No perinephric fluid collections are seen. There is some mild renal cortical scarring within the upper poles. Right kidney measures 11.1 cm in length and the left kidney measures about 10.0 cm in length. Moderate atherosclerotic vascular calcification is seen within the abdominal aorta and iliac arteries. No abdominal aortic aneurysm or abnormal retroperitoneal lymphadenopathy is seen. There is no free intraperitoneal air or free intraperitoneal fluid. It appears the patient has had a prior right hemicolectomy. Mild diverticulosis without diverticulitis is seen within the descending colon and sigmoid colon. The pelvis reveals a surgically absent urinary bladder and prostate gland. No free fluid or abnormal pelvic lymphadenopathy is seen. Vascular calcification is seen within both common femoral arteries. No abnormal inguinal lymphadenopathy is seen. The skeleton reveals no acute fracture or aggressive bone lesion. I see evidence of prior lower lumbar spine surgery at L4 and L5. There is moderate degenerative disc disease at L2-L3. A mild upper lumbar rotary dextroscoliosis is seen centered at L1-L2. Impression: 1. Compared to the recent CT exam from 12/11/2020, there is a new markedly distended right lower quadrant [place] pouch with measurements as given above. Reflux is seen with moderate bilateral hydroureter and hydronephrosis. There is no perinephric fluid. 2. Small hiatal hernia, bilateral renal cortical scarring, and some left-sided diverticulosis without evidence of diverticulitis is seen. There is no free air or free fluid. 3. Status post right hemicolectomy, cystectomy, prostatectomy, and cholecystectomy.
== END 2020-12-17 22:38 | disposition home or self-care (01) ==
LOC: ED 16:06
DX: D72.819 Decreased white blood cell count, unspecified (principal); R53.1 Weakness; R10.13 Epigastric pain; Z79.899 Other long term (current) drug therapy; N30.10 Interstitial cystitis (chronic) without hematuria; D53.1 Other megaloblastic anemias, not elsewhere classified; E87.1 Hypo-osmolality and hyponatremia; E87.2 Acidosis; N18.9 Chronic kidney disease, unspecified
CPT/HCPCS: 36000; 36415; 74176; 80053; 81001; 83690; 83735; 84484; 85025; 93005; 93041; 94760; 99284

== ENCOUNTER 2021-03-02 20:29 | Emergency (ER) | payer MEDICARE, OTHER ==
[2021-03-02] MEDS ORDERED: TYLENOL 325 MG PO STA (20:53)
[2021-03-02 21:02] VITALS: O2SAT 96
[2021-03-02] MEDS ORDERED: TYLENOL 325 MG ONE (21:14)
[2021-03-02 21:32] LABS: Hematocrit 23.3 % (42-50); Hemoglobin 7.5 gm/dl (12.5-18.0); Mean Cell Volume 95.5 fl (78-100); Mean Corpuscular Hemoglobin 30.7 pg (26-32); Mean Corpuscular Hgb Concent. 32.2 g/dl (32-36); Mean Platelet Volume 10.5 fl (7.5-11.0); Platelet Count 527 K/mm3 (150-450); Red Blood Count 2.44 M/mm3 (4.1-5.6); Red Cell Distribution Width 22.3 % (11.5-14.0); White Blood Count 8.7 K/mm3 (4.0-10.5)
[2021-03-02 21:41] LABS: ALBUMIN 4.4 g/dL (3.5-5.0); ANION GAP 15.6 MEQ/L (5-15); BILIRUBIN,TOTAL 0.6 mg/dL (0.2-1.3); Calcium 9.2 mg/dL (8.4-10.2); Creatinine 1 1.68 mg/dL (0.66-1.25); EST GLOMERULAR FILTRATION RATE 42.4 ML/MIN; Potassium 4.1 mmol/L (3.5-5.1)
--- NOTE | 2021-03-02 21:43 | ERPHSYRPT ---
- History of Present Illness Time Seen by Provider: 03/02/21 20:31 Source: patient Exam Limitations: no limitations Patient Subjective Stated Complaint: "I've got a real high fever." Triage Nursing Assessment: The patient is a 76 y/o white male with PMH significant for interstitial cystitis, myelodysplastic syndrome, with PRBC infusions [id number]. Patient reported intermittent fevers over the past 4 weeks reaching low 100s. He reported that today his temperature reached 103.3 F. He reported general malaise. Denied chest pain, cold sweats, N/V/D. Last BM 03-02-21 and normal. Pupils 3mm bilateral. Neck supple without lymphadenopathy. Symmetrical chest expansion. Heart tones S1/S2 RRR with systolic mumur. Lungs vesicular with adequate airflow throughout all lung anton. Abdomen obese non- distended, non-tender, and without peritoneal signs. The patient has an meenakshi pouch to the RLQ which he self-cathed in the room without complications. Bowel sounds present in all quadrants. No palpable organomegaly. Peripheral pusles +3 bilateral. No noted dependent edema. Physician History: 76 years old male with history of myelodysplasia requiring blood transfusion every 3 weeks, interstitial cystitis with Thurston pouch presented in the ER with intermittent fever for the last 4 weeks which responds to taking Tylenol. Today his fever went up to 203 prior to arrival and took 2 Tylenol and currently 100.6. Denies any chest pain, cough or shortness of breath. No abdominal pain nausea or vomiting. Denies any hematuria. Denies any sick contact. Vaccinated against COVID-19. Timing/Duration: week(s), intermittent, worse Fever Severity: moderate Fever Therapy MUCK HAULER: Acetaminophen Associated Symptoms: denies symptoms Allergies/Adverse Reactions: promethazine [From Phenergan] Allergy (Intermediate, Verified 03/02/21 20:36) Difficulty Breathing Home Medications: Allopurinol 300 mg [Zyloprim 300 mg] 300 mg PO QAM 05/19/20 [History] Amlodipine Besylate 5 mg [Norvasc 5 mg] 5 mg PO QAM 05/19/20 [History] Aspirin 81 gm Chew [Baby Aspirin 81 mg Chew] 81 mg PO QAM 05/19/20 [History] Lisinopril 5 mg [Zestril 5 MG] 5 mg PO QAM 05/19/20 [History] hydroCHLOROthiazide [Hydrochlorothiazide] 25 mg PO QAM 05/19/20 [History] LORazepam [Lorazepam] 1 mg PO HS 12/11/20 [History] Levocetirizine Dihydrochloride [Xyzal] 5 mg PO 01/03/21 [History] Hx Influenza Vaccination/Date Given: Yes Hx Pneumococcal Vaccination/Date Given: Yes Travel Risk - International Travel Have you traveled outside of the country in past 3 weeks: No - Coronavirus Screening Are you exhibiting any of the following symptoms?: Yes Symptoms: Fever Close contact with a COVID-19 positive Pt in past 14-21 Days: No - Vaccine Status Have you recieved a Covid-19 vaccination: Yes Escort Vehicle Driver: FUJIAN HAIYUANa - Vaccination Dates Date of 2cond Vaccination (if applicable): 08-01-20 - Review of Systems Constitutional: Fever, Chills, Fatigue, Weakness Eyes: No Symptoms Ears, Nose, & Throat: No Symptoms Respiratory: No Symptoms Cardiac: No Symptoms Abdominal/Gastrointestinal: No Symptoms Genitourinary Symptoms: No Symptoms Musculoskeletal: No Symptoms Skin: No Symptoms Neurological: No Symptoms Psychological: No Symptoms Endocrine: No Symptoms Hematologic/Lymphatic: Anemia, Other Immunological/Allergic: No Symptoms - Past Medical History Pertinent Past Medical History: Yes Neurological History: No Pertinent History ENT History: Cataracts Cardiac History: No Pertinent History Respiratory History: No Pertinent History Endocrine Medical History: No Pertinent History Musculoskeletal History: Degenerative Disk Disease GI Medical History: Gallbladder Disease, Pancreatitis History: Other Psycho-Social History: No Pertinent History Male Reproductive Disorders: Prostate Problems Other Medical History: Patient has interstitial cystitits and has a stoma on the right abdomen where he strait caths himself as needed with 14fr cath (Meenakshi pouch). - Past Surgical History Past Surgical History: Yes Neuro Surgical History: No Pertinent History Cardiac: No Pertinent History Respiratory: No Pertinent History Gastrointestinal: Appendectomy, Cholecystectomy Genitourinary: No Pertinent History Musculoskeletal: Orthopedic Surgery, Other Male Surgical History: No Pertinent History, Prostate Surgery Other Surgical History: spinal surgery; carpal tunnel bilat; Thurston pouch surgery - Social History Smoking Status: Never smoker Exposure to second hand smoke: No Drug Use: none Patient Lives Alone: No - Nursing Vital Signs Nursing Vital Signs: Initial Vital Signs Temperature 100.3 F 09/25/21 20:30 Pulse Rate 92 H 03/02/21 20:30 Respiratory Rate 20 03/02/21 20:30 Blood Pressure 154/60 03/02/21 20:30 O2 Sat by Pulse Oximetry 96 03/02/21 20:30 Pain Scale Pain Intensity 0 - Physical Exam General Appearance: no apparent distress, alert Eye Exam: PERRL/EOMI, eyes nml inspection ENT Exam: normal ENT inspection, no apparent trauma, hearing grossly normal Neck Exam: normal inspection, supple, full range of motion Respiratory Exam: normal breath sounds, lungs clear Cardiovascular/Chest Exam: normal heart sounds, regular rate/rhythm Gastrointestinal/Abdominal Exam: soft, non tender, no distention, no guarding Extremity Exam: non-tender, normal range of motion, normal inspection Neurologic Exam: alert, oriented x 3, cooperative Skin Exam: normal color SpO2 Interpretation: normal SpO2: 96 O2 Delivery: Room Air Ordered Tests: Active Orders 24 hr Category Date Time Status IV Insertion STAT Care 03/02/21 21:00 Active CHEST 1 VIEW (PORTABLE) Stat Exams 03/02/21 20:54 Taken BLOOD CULTURE Stat Lab 03/02/21 20:54 Received CBC W DIFF Stat Lab 03/02/21 20:50 Completed CMP Stat Lab 03/02/21 20:50 Completed CULTURE,URINE Stat Lab 03/02/21 20:57 Received Lactic Acid Stat Lab 03/02/21 21:15 Completed Manual Differential NC Stat Lab 03/02/21 20:50 Completed UA W/RFX UR CULTURE Stat Lab 03/02/21 20:57 Completed Medication Summary Discontinued Medications Generic Name Dose Route Start Last Admin Trade Name Abner PRN Reason Stop Dose Admin Acetaminophen 325 mg 03/02/21 20:53 03/02/21 21:15 Tylenol 325 Mg PO 03/02/21 20:54 325 mg STAT STA Administration Acetaminophen Confirm 03/02/21 21:14 Tylenol 325 Mg Administered 03/02/21 21:15 Dose 325 mg .ROUTE .STK-MED ONE Ceftriaxone Sodium/Dextrose 2 g in 50 mls @ 100 mls/hr 03/02/21 21:48 03/02/21 21:52 Rocephin 2 Gm-D5w 50ml Bag IV 03/02/21 22:17 100 ml/hr STAT STA 100 mls/hr Administration Ceftriaxone Sodium/Dextrose Confirm 03/02/21 21:49 Rocephin 2 Gm-D5w 50ml Bag Administered 03/02/21 21:50 Dose 2 g in 50 mls @ ud IV .STK-MED ONE Lab/Rad Data: Laboratory Result Diagrams 03/02/21 20:50 03/02/21 20:50 Laboratory Results 03/02/21 03/02/21 03/02/21 Range/Units 21:15 20:57 20:50 WBC (4.0-10.5) K/mm3 RBC (4.1-5.6) M/mm3 Hgb (12.5-18.0) gm/dl Hct (42-50) % MCV (78-100) fl MCH (26-32) pg MCHC (32-36) g/dl RDW (11.5-14.0) % Plt Count (150-450) K/mm3 MPV (7.5-11.0) fl Sodium 136 L (137-145) mmol/L Potassium 4.1 (3.5-5.1) mmol/L Chloride 100 (98-107) mmol/L Carbon Dioxide 25 (22-30) mmol/L Anion Gap 15.6 H (5-15) MEQ/L BUN 26 H (9-20) mg/dL Creatinine 1.68 H (0.66-1.25) mg/dL Estimated GFR 42.4 ML/MIN Glucose 108 H (74-106) mg/dL Lactic Acid 1.3 (0.4-2.0) Calcium 9.2 (8.4-10.2) mg/dL Total Bilirubin 0.60 (0.2-1.3) mg/dL AST 18 (17-59) U/L ALT 17 (0-50) U/L Alkaline Phosphatase 91 (38-126) U/L Serum Total Protein 8.0 (6.3-8.2) g/dL Albumin 4.4 (3.5-5.0) g/dL Urine Color YELLOW (YELLOW) Urine Appearance SLIGHTLY CLOUDY (CLEAR) Urine pH 7.0 (5-6) Ur Specific Artie 1.009 (1.005-1.025) Urine Protein 30 (Negative) Urine Ketones NEGATIVE (NEGATIVE) Urine Blood NEGATIVE (0-5) August/ul Urine Nitrite NEGATIVE (NEGATIVE) Urine Bilirubin NEGATIVE (NEGATIVE) Urine Urobilinogen NEGATIVE (0-1) mg/dL Ur Leukocyte Esterase LARGE (NEGATIVE) Urine WBC (Auto) >100 (0-5) /HPF Urine RBC (Auto) 0-2 (0-2) /HPF U Epithel Cells (Auto) NONE (FEW) /HPF Urine Bacteria (Auto) FEW (NEGATIVE) /HPF Urine Culture Reflexed YES (NO) Urine Glucose NEGATIVE (NEGATIVE) mg/dL 03/02/21 Range/Units 20:50 WBC 8.7 (4.0-10.5) K/mm3 RBC 2.44 L (4.1-5.6) M/mm3 Hgb 7.5 L (12.5-18.0) gm/dl Hct 23.3 L (42-50) % MCV 95.5 (78-100) fl MCH 30.7 (26-32) pg MCHC 32.2 (32-36) g/dl RDW 22.3 H (11.5-14.0) % Plt Count 527 H (150-450) K/mm3 MPV 10.5 (7.5-11.0) fl Sodium (137-145) mmol/L Potassium (3.5-5.1) mmol/L Chloride (98-107) mmol/L Carbon Dioxide (22-30) mmol/L Anion Gap (5-15) MEQ/L BUN (9-20) mg/dL Creatinine (0.66-1.25) mg/dL Estimated GFR ML/MIN Glucose (74-106) mg/dL Lactic Acid (0.4-2.0) Calcium (8.4-10.2) mg/dL Total Bilirubin (0.2-1.3) mg/dL AST (17-59) U/L ALT (0-50) U/L Alkaline Phosphatase (38-126) U/L Serum Total Protein (6.3-8.2) g/dL Albumin (3.5-5.0) g/dL Urine Color (YELLOW) Urine Appearance (CLEAR) Urine pH (5-6) Ur Specific Artie (1.005-1.025) Urine Protein (Negative) Urine Ketones (NEGATIVE) Urine Blood (0-5) August/ul Urine Nitrite (NEGATIVE) Urine Bilirubin (NEGATIVE) Urine Urobilinogen (0-1) mg/dL Ur Leukocyte Esterase (NEGATIVE) Urine WBC (Auto) (0-5) /HPF Urine RBC (Auto) (0-2) /HPF U Epithel Cells (Auto) (FEW) /HPF Urine Bacteria (Auto) (NEGATIVE) /HPF Urine Culture Reflexed (NO) Urine Glucose (NEGATIVE) mg/dL - Progress Progress: improved Progress Note: 03/02/21 22:17 76 years old is evaluated for intermittent fever. He was offered Tylenol which he refused. Work-up showed normal white count, hemoglobin of 7.5 and patient usually runs between 7.5-8.5. He does receive transfusion or regular basis. He does have UTI and questionable airspace disease, recommended antibiotics but patient refused. Patient states "I do not need any antibiotics and I am fine now, need to go home". Also reports "I have been told not to take any antibiotics by my doctor". He is not confused or altered at all. Discussed with patient in length about risk of widespread infection with sepsis with worsening of condition especially with her myelodysplasia but he refused and would follow-up with his primary care. 03/02/21 22:20 Counseled pt/family regarding: lab results, diagnosis, need for follow-up, rad results - Departure Departure Disposition: AMA Clinical Impression: UTI (urinary tract infection) Qualifiers: Urinary tract infection type: site unspecified Hematuria presence: without hematuria Qualified Code(s): N39.0 - Urinary tract infection, site not specified Fever Qualifiers: Fever type: unspecified Qualified Code(s): R50.9 - Fever, unspecified Condition: Stable Critical Care Time: No Referrals: ARACELIS NARVAEZ MD [Primary Care Provider] - (In 2 days for reevaluation) Instructions: Fever, Adult (DC) Additional Instructions: Take Tylenol as needed. Follow-up with your primary care physician for reevaluation in 2 days. Return to ER for persistent high-grade fever/chil ls/cough, shortness of breath etc.
[2021-03-02 21:44] LABS: Appearance SLIGHTLY CLOUDY (CLEAR); Bacteria FEW /HPF (NEGATIVE); Bilirubin NEGATIVE (NEGATIVE); Blood NEGATIVE Ery/ul (0-5); Glucose NEGATIVE (NEGATIVE); Ketones NEGATIVE (NEGATIVE); Leukocyte Esterase LARGE (NEGATIVE); Nitrite NEGATIVE (NEGATIVE); Protein,Urine Dip 30 (Negative); RBC 0-2 /HPF (0-2); Specific Gravity 1.009 (1.005-1.025); Urobilinogen NEGATIVE mg/dL (0-1); WBC >100 /HPF (0-5)
[2021-03-02] MEDS ORDERED: ROCEPHIN 2 Gm-D5w 50ML BAG** 2 G/50 ML IVPB IV ONE (21:49)
[2021-03-02] MEDS: ROCEPHIN 2 Gm-D5w 50ML BAG** 2 G/50 ML IVPB IV STA ×2 (21:52→22:24)
[2021-03-02 21:57] VITALS: BP 128/59; PULSE 88
--- NOTE | 2021-03-02 22:27 | XRAY ---
Indication: Fever. Comparison: February 26, 2021. Portable apical lordotic chest unchanged again hyperinflated and clear. Heart not enlarged with again left hilar calcified node and right Port-A-Cath. No new/acute abnormalities.
[2021-03-03 00:38] LABS: ANISOCYTOSIS 2+; BAND 5 % (0.0-2.0); Eosinophil 3 % (0.00-3.0); Lymphocytes 23 % (24-44); Monocyte 14 % (0.0-12.0); Neutrophils 55 % (36.-66.); Platelet Estimate INCREASED (NORMAL); Total Cells Counted 100
[2021-03-03 00:39] LABS: Hypochromia 1+
== END 2021-03-02 22:16 | disposition left against medical advice (07) ==
LOC: ED 20:29
DX: N39.0 Urinary tract infection, site not specified (principal); R50.9 Fever, unspecified; D46.9 Myelodysplastic syndrome, unspecified; Z79.899 Other long term (current) drug therapy
CPT/HCPCS: 36000; 36415; 71045; 80053; 81001; 83605; 85025; 87040; 87077; 87086; 87186; 99284; J0696; A9270-GY